=== PATIENT | female | born 1945 | race Caucasian/White ===

== ENCOUNTER 2023-05-04 09:02 | Outpatient (AMB) | payer OTHER, SELFPAY ==
--- NOTE | 2023-05-04 09:03 | MHC.OFFWIV ---
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 Patient complaining of right ear fullness. Patient reports a history of recurrent cerumen impaction and she was seeing any ENT every 2 months for removal while she lived in [place]. Patient just recently moved back to the area and was not able to make an ENT appointment until the end of May. Patient states she has had right ear fullness for the past 2 months because she has not had cerumen removal. Patient reports having a small ear canals and her ENT had to use the supplies. She reports mild nasal congestion and eye irritation attributed to seasonal allergies. She otherwise feels well. [facility] Social History Patient Tobacco Use Status: Former Tobacco user Review of Systems Const All systems reviewed & are unremarkable except as noted in HPI and below Reports no additional complaints Eyes Reports no additional complaints ENT Reports no additional complaints Card Reports no additional complaints Resp Reports no additional complaints GI Reports no additional complaints Reports no additional complaints Musc Reports no additional complaints Skin/Breast Reports system reviewed and no additional complaints, except as documented Neuro Reports no additional complaints Psych Reports no additional complaints Endo Reports no additional complaints Blaze/Lymph Reports no additional complaints Aller/Immun Reports no additional complaints Physical Exam Vital Signs: Last Vital Signs Temp 97.6 F 05/04/23 09:05 Pulse 74 05/04/23 09:05 BP 120/70 05/04/23 09:05 Pulse Ox 97 05/04/23 09:05 BMI result Body Mass Index 16.6 Const General: cooperative, healthy appearing, no acute distress and well developed Orientation/consciousness: patient oriented x3 HEENT Other: Significant swelling of the right external auditory canal. Unable to visualize tympanic membrane. Head: Yes normal to inspection Ears: hearing grossly normal bilaterally General nose exam: Normal external nose present Face and sinus: Yes normal facial exam Mouth: Normal oral and palatal mucosa present Eyes General: appearance normal, both eyes and all related structures Pupils: Equal, round and reactive pupils present EOM: EOMs intact bilaterally Resp Effort & Inspection: normal respiratory effort and no respiratory distress Auscultation: clear to auscultation bilaterally Cardio Rate: regular rate Rhythm: regular rhythm Heart sounds: no gallops, no murmurs and no rubs Peripheral pulses: Peripheral pulses 2+ throughout GI Inspection: No distended Palpation (GI): Soft to palpation and nontender Auscultation: normal bowel sounds Skin General skin exam: no rashes or lesions noted Neuro General: patient oriented x3 Cranial nerves: Yes CN's II-XII intact bilaterally and Yes Equal, round and reactive pupils present Gait exam (Neuro): Normal gait present Motor exam (neuro): 5/5 motor strength present throughout Extrem General: Yes normal to inspection, Yes full ROM and Yes no clubbing, cyanosis or edema Psych Appearance: grossly normal Mental Status: mental status grossly normal Assessment & Plan Assessment & Plan (1) Sensation of fullness in right ear: Code(s): H93.8X1 - Other specified disorders of right ear Plan: This is a 77-year-old female with history of recurrent cerumen impaction presenting with right ear fullness. Unable to perform cerumen removal given significant swelling of the right external auditory canal. Patient was prescribed hydrocortisone ear drops to help with the swelling. She was advised to follow up here once the swelling improves to re-attempt cerumen removal. If her symptoms improve, patient can follow up with the ENT at the end of May as scheduled. Patient verbalizes her understanding and she is in agreement with the plan. Medications: New hydrocortisone-acetic acid 1-2 % 4 drps otic (ear) right TID 10 mL 0RF Coding Level of Care Code New Pt Level 3 (11325) Diagnoses Sensation of fullness in right ear H93.8X1
[2023-05-04 09:05] VITALS: BP 120/70; PULSE 74; TEMP 36.4; O2SAT 97; BMI 16.6
== END 2023-05-04 09:53 | disposition home or self-care (01) ==
PROVIDERS: Visit Provider Physician Assistant Medical
DX: H93.8X1 Other specified disorders of right ear (principal)
CPT/HCPCS: 99203

== ENCOUNTER 2023-05-17 08:46 | Outpatient (AMB) | payer OTHER, SELFPAY ==
--- NOTE | 2023-05-17 08:54 | AM.OFFWIN_ITS ---
Intake Vital Signs 05/17/23 08:56 Height 5 ft Weight 83 lb 8 oz BMI 16.3 BP 122/78 Blood Pressure Location Rt brachial Position Sitting Pulse 70 Pulse Source Pulse Oximeter Pulse Oximetry (%) 100 Oxygen Delivery Method Room Air Intake Visit Reasons: EP Wax Removal Intake Note: Patient here for for wax build up. Patient Tobacco Use Status: Former Tobacco user Allergies No Known Allergies Allergy (Verified 05/04/23 09:06) Do you need a note to return to daycare/school/sports/work: No HPI HPI Comments History of Present Illness Details 77-year-old female history of chronic cerumen impaction presents for ear flushing. Patient states she came couple weeks ago with right ear pain found have cerumen impaction because of swelling of the ear. There are unable to flush given the level swelling and prescribed hydrocortisone drops. She returns today with improvement in her swelling and requesting flushing. [facility] Social History Patient Tobacco Use Status: Former Tobacco user Review of Systems Const All systems reviewed & are unremarkable except as noted in HPI and below ENT Details: ear fullness Physical Exam Vital Signs: Last Vital Signs Pulse 70 05/17/23 08:56 BP 122/78 05/17/23 08:56 Pulse Ox 100 05/17/23 08:56 Oxygen Delivery Method Room Air 05/17/23 08:56 BMI result Body Mass Index 16.3 Const General: healthy appearing, comfortable and no acute distress HEENT Other: cerumen buildup in the right ear unable to visualize canal. Mild cerumen in the left ear canal intact Assessment & Plan Assessment & Plan (1) Cerumen impaction: Code(s): H61.20 - Impacted cerumen, unspecified ear Plan VSS. Exam notable for cerumen buildup in the right ear will flush.. patient tolerated ear flushing. Repeat examination shows clear canal with tympanic membrane intact no evidence of infection. Discharge instructions, follow up and treatment are discussed with patient in my usual fashion. Alternatives in treatment are also discussed. The patient will return for worsening symptoms or as needed. Advised that any labs/imaging ordered will be followed up on and contact made if further treatment needed. Counseled that patient's condition may require further evaluation and/or treatment. Symptoms of concern for worsening disorder discussed in detail in my customary manner. Patient does verbalize understanding of the plan, there are no apparent barriers to communication. The patient is given the opportunity to ask questions and have them answered to his/her satisfaction Coding Level of Care Code Est Pt Level 3 (63859) Diagnoses Cerumen impaction H61.20
[2023-05-17 08:56] VITALS: BP 122/78; PULSE 70; O2SAT 100; BMI 16.3
== END 2023-05-17 09:52 | disposition home or self-care (01) ==
PROVIDERS: Visit Provider Physician Assistant
DX: H61.21 Impacted cerumen, right ear (principal)
CPT/HCPCS: 69209; 99213

== ENCOUNTER 2023-06-14 08:37 | Outpatient (AMB) | payer OTHER, SELFPAY ==
--- NOTE | 2023-06-14 08:48 | AM.OFFWIN_ITS ---
Intake Vital Signs 06/14/23 08:50 Height 5 ft Weight 84 lb BMI 16.4 BP 120/80 Blood Pressure Location Lt brachial Position Sitting Pulse 66 Pulse Source Pulse Oximeter Pulse Oximetry (%) 99 Oxygen Delivery Method Room Air Intake Visit Reasons: EST/left leg infection Intake Note: Patient here for a sore on left leg. she stated she hit herself on the end of a coffee table and thats how it started but has not gone away and its been present for 2 weeks now. she states it continues to bleed. Patient Tobacco Use Status: Former Tobacco user Allergies No Known Allergies Allergy (Verified 06/14/23 08:54) Do you need a note to return to daycare/school/sports/work: No HPI HPI Comments History of Present Illness Details 77-year-old female presents for stone re moval leg infection. She cut her leg on a table couple weeks ago and some redness around there she has been using [id number] treatments and was advised to come in and have it looked at. Denies fevers or chills. PFSH Social History Patient Tobacco Use Status: Former Tobacco user Review of Systems Const All systems reviewed & are unremarkable except as noted in HPI and below Skin/Breast Reports wounds Physical Exam Vital Signs: Last Vital Signs Pulse 66 06/14/23 08:50 BP 120/80 06/14/23 08:50 Pulse Ox 99 06/14/23 08:50 Oxygen Delivery Method Room Air 06/14/23 08:50 BMI result Body Mass Index 16.4 Const General: cooperative, no acute distress and alert Skin Other: Small circular wound on the left mid cruz region. Some surrounding erythema and warmth Assessment & Plan Assessment & Plan (1) Cellulitis: Code(s): L03.90 - Cellulitis, unspecified Qualifiers: Site of cellulitis: extremity Site of cellulitis of extremity: lower extremity Laterality: left Qualified Code(s): L03.116 - Cellulitis of left lower limb Plan: Exam notable for Small circular wound on the left mid cruz region. Some surrounding erythema and warmth, exam findings consistent concerning for cellulitis. Will prescribe Keflex. Discharge instructions, follow up and treatment are discussed with patient in my usual fashion. Alternatives in treatment are also discussed. The patient will return for worsening symptoms or as needed. Advised that any labs/imaging ordered will be followed up on and contact made if further treatment needed. Counseled that patient's condition may require further evaluation and/or treatment. Symptoms of concern for worsening disorder discussed in detail in my customary manner. Patient does verbalize understanding of the plan, there are no apparent barriers to communication. The patient is given the opportunity to ask questions and have them answered to his/her satisfaction Medications: New cephalexin 500 mg PO QID 28 caps 0RF 7 days Patient Instructions: Your seen evaluated in the urgent care for a skin infection. Urine prescribed Keflex please take as directed 4 times a day for the next 7 days. This should clear up the redness or neural wound. Please days antibiotic ointment which can be purchased [id number]. Some examples of bacitracin. If your wound does not close with the next 2 weeks you may follow-up with primary as you may need to be referred to wound care. Patient has a new worsening since such as worsening redness or swelling pain or fever chills present to the emergency department. Coding Level of Care Code Est Pt Level 3 (65531) Diagnoses Cellulitis of left lower extremity L03.116 Site of cellulitis: extremity Site of cellulitis of extremity: lower extremity Laterality: left
[2023-06-14 08:50] VITALS: BP 120/80; PULSE 66; O2SAT 99; BMI 16.4
== END 2023-06-14 09:25 | disposition home or self-care (01) ==
LOC: HO.HMGWI 08:37
DX: L03.116 Cellulitis of left lower limb (principal)
CPT/HCPCS: 99213

== ENCOUNTER 2023-08-27 09:47 | Outpatient (AMB) | payer OTHER, SELFPAY ==
--- NOTE | 2023-08-27 09:49 | MHC.PC.OV ---
Vital Signs 08/27/23 10:05 Height 4 ft 11 in Weight 79 lb 6 oz BMI 16.0 BP 120/70 Blood Pressure Location Lt brachial Position Sitting Pulse 73 Pulse Source Pulse Oximeter Pulse Oximetry (%) 100 Oxygen Delivery Method Room Air Intake Visit Reasons: Establish Care Intake Note: Patient is a new patient here to establish care for Breast Cancer (2018), Heart murmur. Transferring care from Dr Rehman ([place]), Dr Gita Powers ([facility]). Medical records have been requested and have received. 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 Accompanied by: Self / Same As Patient Allergies No Known Allergies Allergy (Verified 08/27/23 10:24) Medication List - Last Reconciled 08/27/23 by Vini Dejesus PA-C alendronate 70 mg PO QWEEK ascorbate calcium (vitamin C) 500 mg PO DAILY cholecalciferol (vitamin D3) 25 mcg PO DAILY cyanocobalamin (vitamin B-12) 1,000 mcg PO DAILY hydrocortisone-acetic acid 1-2 % 4 drps otic (ear) right TID loratadine 10 mg PO DAILY Tobacco use date assessed: 08/27/23 Fall risk assessment: No Falls in past year Last assessed Fall Risk: 08/27/23 Dental Screening Dental Screen Date: 08/27/23 Did you have a dental visit in the last 12 months?: No Did you have a dental problem in the last 6 months where you did not have access to dental care?: No Was dental information given to patient?: No HPI Establish Care HPI Details Patient is a 77-year-old female here today for an establish care visit. Patient's previous PCP was in [place]. Patient has a past medical history significant for breast cancer diagnosed in 2018- Lumpectomy, s/p radiation, will BMI, osteoporosis. She did follow-up with a [facility] PCP own recently had gotten labs. She cannot recall any of the findings though was started on B12 supplementation. Bilateral ear congestion: Bilateral ear congestion has been a chronic issue for her. She does follow in ENT in [place] and gets her ears cleaned. She was told she had eczema on her right ear was told to use topical steroid cream on the external canal which has been helpful. .. h/o beast cancer - Gets mammo yearly , like to transition to [place] to get her mammograms .. Osteoporosis: She continues on Fosamax once weekly. She cannot recall any recent bone density screening. Will order bone density to evaluate her bone mineral density. Vaccines: Up-to-date with COVID vaccine, flu vaccine and pneumonia vaccine. [facility] Medical History (Updated 08/28/23 @ 07:55 by Vini Dejesus PA-C) Cellulitis Surgical History History of nasal surgery History of lumpectomy Social History Housing: Apartment Alcohol intake: current Alcohol intake frequency: holidays/special occasions only Patient Tobacco Use Status: Former Tobacco user (20 years ) e-Cigarette/Vaping Use: Never Used Second Hand Smoke Exposure: Yes service: No Current occupational status: retired Cognitive needs: No Hearing needs: No Vision needs: Yes (glasses) Questionnaire PHQ-9 Over the last 2 weeks, how often have you been bothered by any of the following problems? 1. Little interest or pleasure in doing things: not at all 2. Feeling down, depressed, or hopeless: not at all 3. Trouble falling or staying asleep, or sleeping too much: not at all 4. Feeling tired or having little energy: not at all 5. Poor appetite or overeating: not at all 6. Feeling bad about yourself - or that you are a failure or have let yourself or your family down: not at all 7. Trouble concentrating on things, such as reading the newspaper or watching television: not at all 8. Moving or speaking so slowly that other people could have noticed. Or the opposite - being so fidgety or restless that you have been moving around a lot more than usual: not at all 9. Thoughts that you would be better off or of hurting yourself in some way: not at all Total score: 0 Depression Screening Interpretation: Negative Depression Screening Done: Yes 00135 - PHQ-9 Billing: Yes Source: Developed by Drs. Constantin Badillo, Ana Paula Young, Alireza Cadena and colleagues, with an educational pretty from [employer]. Thrive Questionnaire Date Thrive assessed: 08/27/23 I am a: Patient What is your living situation today?: I have a steady place to live Within the past 12 months, did the food you bought not last and you didn't have the money to get more?: Never true Within the past 12 months, did you worry whether your food would run out before you got money to buy more?: Never true Do you have trouble paying for medicines?: No Do you have trouble getting transportation to medical appointments?: No Do you have trouble paying your heating and electricity bill?: No Do you have trouble taking care of your child, family member or friend?: No Do you have trouble with day-to-day activities such as bathing, preparing meals, shopping, managing finances, etc.?: No Are you currently unemployed and looking for a job?: No Are you interested in more education?: No Currently or been in a relationship where the following occur: no concerns reported AUDIT C Alcohol Use Questionnaire (AUDIT-C) 1. How often do you have a drink containing alcohol?: Monthly or less Total Score: 1 SHANIKA-7 AMB Questionnaire SHANIKA-7 Date SHANIKA - 7 assessed: 08/27/23 Feeling nervous, anxious, or on edge: 0 = Not at all Not being able to stop or control worryin = Not at all Worrying too much about different things: 0 = Not at all Trouble relaxin = Not at all Being so restless that it is hard to sit still: 0 = Not at all Becoming easily annoyed or irritable: 0 = Not at all Feeling afraid as if something awful might happen: 0 = Not at all Total SHANIKA-7 score (0-4 normal; 5-9 mild; 10-14 moderate; 15-21 severe): 0 Source: Developed by Drs. Constantin Badillo, Ana Paula Young, Alireza Cadena and colleagues, with an educational pretty from [employer]. SHANIKA-7 Assessment Billing SHANIKA-7 Assessment Tool: SHANIKA-7 Assessment 63475 Review of Systems Const Denies headache(s) Eyes Denies loss of vision ENT Denies vertigo, Denies dizziness, Denies headache(s) and Denies sore throat Card Denies chest pain, Denies leg edema and Denies lightheadedness Resp Denies cough, Denies hemoptysis and Denies wheezing GI Denies abdominal pain, Denies melena, Denies constipation, Denies diarrhea and Denies vomiting Denies urinary frequency, Denies dysuria and Denies urinary urgency Musc Denies arthralgias, Denies joint swelling, Denies numbness and Denies tingling Neuro Denies Abnormal speech present, Denies behavioral changes, Denies vertigo, Denies dizziness, Denies headache(s), Denies loss of vision, Denies memory loss, Denies numbness and Denies tingling Psych Denies anxiety, Denies behavioral changes, Denies depression, Denies memory loss and Denies panic attacks Blaze/Lymph Denies easy bleeding and Denies easy bruising Aller/Immun Denies wheezing Physical exam (Primary Care) Vital Signs: Last Vital Signs Pulse 73 08/27/23 10:05 BP 120/70 08/27/23 10:05 Pulse Ox 100 08/27/23 10:05 Oxygen Delivery Method Room Air 08/27/23 10:05 BMI result Body Mass Index 16.0 Tobacco/Smoking Status: Tobacco use Status Tobacco use date assessed 08/27/23 08/27/23 10:07 Patient Tobacco Use Status Former Tobacco user (20 08/27/23 10:21 years ) e-Cigarette/Vaping Use Never Used 08/27/23 10:19 PHQ-9: PHQ-9 Score PHQ-9: Total score 0 08/27/23 10:36 Depression Screening Interpretation: Negative Thrive Assessment: Date of Thrive Assessment Date Thrive assessed 08/27/23 08/27/23 10:07 Currently or been in a relationship where the following occur: no concerns reported Const General: healthy appearing, no acute distress, alert and awake Nutritional Appearance: well nourished Orientation/consciousness: oriented to person, oriented to place and oriented to time [facility] Ears: TM's normal bilaterally General nose exam: Normal nasal mucous membranes and turbinates present Eyes Conjunctivae: conjunctivae normal Sclerae: sclerae normal Pupils: Equal, round and reactive pupils present Neck Neck: Yes no lymphadenopathy and Yes no JVD Thyroid: Thyroid normal Carotids: no bruits Resp Effort & Inspection: normal respiratory effort and not tachypneic Auscultation: no crackles, no rales, no rhonchi and no wheezes Cardio Rate: regular rate Rhythm: regular rhythm Heart sounds: no murmurs and normal S1 and S2 GI Palpation (GI): Soft to palpation, nontender, no hepatomegaly and no splenomegaly Auscultation: normal bowel sounds Skin General skin exam: no rashes or lesions noted and dry skin Neuro General: oriented to person, oriented to place and oriented to time Cranial nerves: Yes Equal, round and reactive pupils present Speech: No Abnormal speech present Gait exam (Neuro): Normal gait present Motor exam (neuro): no tremor noted Extrem Right upper extremity: full ROM Left upper extremity: full ROM Right lower extremity: full ROM; no edema Left lower extremity: full ROM; no edema Psych Mental Status: mental status grossly normal Speech and movement: Normal speech and movement present Affect: normal affect Attitude: cooperative Thought process: Normal thought process present Assessment and Plan Assessment & Plan (1) Osteoporosis: Code(s): M81.0 - Age-related osteoporosis without current pathological fracture Qualifiers: Osteoporosis type: age-related Presence of current pathological fracture: without current pathological fracture Qualified Code(s): M81.0 - Age-related osteoporosis without current pathological fracture Plan: Will get a new bone density screening to evaluate the bone mineral density. Will continue once weekly Fosamax. (2) H/O malignant neoplasm of breast: Code(s): Z85.3 - Personal history of malignant neoplasm of breast Plan: Has had history of breast cancer and is status post radiation and mastectomy. Continues to get mammograms on annual basis. (3) Screening for diabetes mellitus (DM): Code(s): Z13.1 - Encounter for screening for diabetes mellitus (4) Congestion of right ear: Code(s): H93.8X1 - Other specified disorders of right ear Plan: As per HPI patient has chronic ear congestion. Has been started antihistamine therapy and hydrocortisone cream for her external canal is she has been told she had eczema on her ear. (5) B12 deficiency: Code(s): E53.8 - Deficiency of other specified B group vitamins Plan: Was started on B12 supplementation by her previous PCP. Will continue to follow B 12 Orders: Orders Comprehensive [place]. Panel Fast 08/27/23 Z13.1 - Encounter for screening for diabetes mellitus Vitamin B12 and Folate 08/27/23 E53.8 - Deficiency of other specified B group vitamins XR DEXA axial skeleton 08/27/23 M81.0 - Age-related osteoporosis without current pathological fracture, Z78.0 - Asymptomatic menopausal state Complete Blood Count no Diff 08/27/23 E53.8 - Deficiency of other specified B group vitamins Referrals Ear/Nose/Throat Referral H93.8X1 - Other specified disorders of right ear Medications: Changed From alendronate 70 mg PO QWEEK M81.0 - Age-related osteoporosis without current pathological fracture To alendronate 70 mg PO QWEEK 12 weeks 12 tabs 3RF M81.0 - Age-related osteoporosis without current pathological fracture From cyanocobalamin (vitamin B-12) 1,000 mcg PO DAILY M81.0 - Age-related osteoporosis without current pathological fracture To cyanocobalamin (vitamin B-12) 1,000 mcg PO DAILY 90 days 90 tabs 1RF M81.0 - Age-related osteoporosis without current pathological fracture Discontinued hydrocortisone-acetic acid 1-2 % Discontinued Reason: Doctor's Order 4 drps otic (ear) right TID 10 mL 0RF Coding Level of Care Code New Pt Level 4 (25948) Diagnoses Age-related osteoporosis without current pathological fracture M81.0 Osteoporosis type: age-related Presence of current pathological fracture: without current pathological fracture H/O malignant neoplasm of breast Z85.3 Screening for diabetes mellitus (DM) Z13.1 Congestion of right ear H93.8X1 B12 deficiency E53.8 Additional Codes SHANIKA-7 Assessment Billing - SHANIKA-7 Assessment Tool: SHANIKA-7 Assessment 44099 ([id number])
[2023-08-27 10:05] VITALS: BP 120/70; PULSE 73; O2SAT 100; BMI 16.0
== END 2023-08-27 10:49 | disposition home or self-care (01) ==
PROVIDERS: PCP Physician Assistant; Visit Provider Physician Assistant
DX: M81.0 Age-related osteoporosis without current pathological fracture (principal); Z85.3 Personal history of malignant neoplasm of breast; Z13.1 Encounter for screening for diabetes mellitus; H93.8X1 Other specified disorders of right ear; E53.8 Deficiency of other specified B group vitamins
CPT/HCPCS: 99204; 99214

== ENCOUNTER 2023-09-18 08:40 | Outpatient (AMB) | payer OTHER, SELFPAY ==
[2023-09-18 10:06] VITALS: BP 116/70; PULSE 82; TEMP 36.8; O2SAT 98; BMI 16.6
--- NOTE | 2023-09-18 10:06 | AM.OFFWIN_ITS ---
Intake Vital Signs 09/18/23 10:06 Height 4 ft 11 in Weight 82 lb BMI 16.6 BP 116/70 Blood Pressure Location Lt brachial Position Sitting Pulse 82 Pulse Source Pulse Oximeter Temp 98.2 F Temp Source Temporal Artery Scan Pulse Oximetry (%) 98 Oxygen Delivery Method Room Air Intake Visit Reasons: EP, redness/swelling in both cheeks(lobby) Intake Note: pt is here for c.o redness, swelling in both cheeks Patient Tobacco Use Status: Former Tobacco user (20 years ) Allergies No Known Allergies Allergy (Verified 09/18/23 10:15) Medication List - Last Reconciled 09/18/23 by Benedict Campbell MD alendronate 70 mg PO QWEEK 12 weeks ascorbate calcium (vitamin C) 500 mg PO DAILY cholecalciferol (vitamin D3) 25 mcg PO DAILY cyanocobalamin (vitamin B-12) 1,000 mcg PO DAILY 90 days loratadine 10 mg PO DAILY Do you need a note to return to daycare/school/sports/work: No HPI EP, redness/swelling in both cheeks(lobby) HPI Details 77-year-old female presents to the [facility] for a sick visit. Patient has developed a rash over the past few days. Rashes on both sides to the cheeks causing more discomfort. No fevers or chills. [facility] Medical History (Updated 08/28/23 @ 07:55 by Vini Dejesus PA-C) Cellulitis Surgical History History of nasal surgery History of lumpectomy Social History Housing: Apartment Alcohol intake: current Alcohol intake frequency: holidays/special occasions only Patient Tobacco Use Status: Former Tobacco user (20 years ) e-Cigarette/Vaping Use: Never Used Second Hand Smoke Exposure: Yes service: No Current occupational status: retired Cognitive needs: No Hearing needs: No Vision needs: Yes (glasses) Physical Exam Vital Signs: Last Vital Signs Temp 98.2 F 09/18/23 10:06 Pulse 82 09/18/23 10:06 BP 116/70 09/18/23 10:06 Pulse Ox 98 09/18/23 10:06 Oxygen Delivery Method Room Air 09/18/23 10:06 BMI result Body Mass Index 16.6 Skin Other: Erythematous rash on both cheeks across the bridge of the nose. The rash is extending beyond the nasolabial folds on each side. Assessment & Plan Assessment & Plan (1) Rash: Code(s): R21 - Rash and other nonspecific skin eruption Plan: Most likely irritant dermatitis. Blood work to check for a inflammatory markers ordered. Tapering dose of prednisone given. Orders: Orders Complete Blood Count no Diff Today R21 - Rash and other nonspecific skin eruption Basic Metabolic Panel Today R21 - Rash and other nonspecific skin eruption Liver Panel Today R21 - Rash and other nonspecific skin eruption Erythrocyte Sedimentation Rate Today R21 - Rash and other nonspecific skin eruption C Reactive Protein Today R21 - Rash and other nonspecific skin eruption Thyroid Stimulating Hormone Today R21 - Rash and other nonspecific skin eruption Medications: New prednisone 6 pills by mouth day 1, 6 pills by mouth day 2, 5 pills by mouth day 3, 4 pills by mouth day 4, 3 pills by mouth day 5, 2 pills by mouth day 6, 1 pill by mouth day 7 and 1 pill by mouth day 8. 10 mg PO DAILY 28 tabs 0RF Coding Level of Care Code Est Pt Level 4 (97213) Diagnoses Rash R21
== END 2023-09-18 10:47 | disposition home or self-care (01) ==
PROVIDERS: PCP Physician Assistant; Visit Provider Internal Medicine
DX: R21 Rash and other nonspecific skin eruption (principal)
CPT/HCPCS: 99214

== ENCOUNTER 2023-09-18 10:32 | Outpatient (REF) | payer OTHER, SELFPAY ==
[2023-09-18 13:22] LABS: Hematocrit 40.1 % (37.0-47.0); Mean Corpuscular HGB Conc 34.9 g/dl (31.0-35.0); Mean Corpuscular Hemoglobin 31.3 pg (27.0-33.0); Mean Corpuscular Volume 89.7 fL (80.0-98.0); Mean Platelet Volume 10.8 fL (9.4-12.3); Platelet Count 149 X10*3/uL (160-400); Red Blood Count 4.47 X10*6/uL (4.20-5.50); Red Cell Distribution Width 13.3 % (11.0-16.0); White Blood Count 6.7 X10*3/uL (4.8-10.8)
[2023-09-18 13:44] LABS: Alanine Aminotransferase 15 U/L (0-31); Albumin Level 4.2 g/dL (3.5-5.0); Alkaline Phosphatase 68 U/L (39-117); Anion Gap 15 (12-20); Aspartate Amino Transferase 24 U/L (5-31); Bilirubin Direct 0.5 mg/dL (0.0-0.5); Bilirubin Total 1.5 mg/dL (0.0-1.0); Blood Urea Nitrogen 13 mg/dL (9-16); C Reactive Protein 1.61 mg/dL (< or = 0.50); Calcium 9.4 mg/dL (8.4-10.2); Carbon Dioxide 26 mmol/L (22-29); Chloride 101 mmol/L (96-108); Estimated Glomerular Filt Rate > 60; Glucose Random 95 mg/dL (60-115); Potassium 3.6 mmol/L (3.3-5.1); Sodium 138 mmol/L (135-145); Total Protein 7.5 g/dL (6.5-8.0)
[2023-09-18 13:53] LABS: Thyroid Stimulating Hormone 1.21 uIU/mL (0.32-4.0)
[2023-09-18 13:59] LABS: Erythrocyte Sedimentation Rate 13 MM/HR (0-20)
== END 2023-09-18 10:33 | disposition home or self-care (01) ==
LOC: HO.HMGCLDS 10:32
PROVIDERS: PCP Physician Assistant; Visit Provider Internal Medicine
DX: R21 Rash and other nonspecific skin eruption (principal)
CPT/HCPCS: 36415; 80048; 80076; 84443; 85027; 85652; 86140

== ENCOUNTER 2023-09-25 14:20 | Outpatient (AMB) | payer OTHER, SELFPAY ==
--- NOTE | 2023-09-25 14:23 | MHC.PC.OV ---
Vital Signs 09/25/23 14:30 Height 4 ft 11 in Weight 82 lb BMI 16.6 BP 140/82 H Blood Pressure Location Lt brachial Position Sitting Respiration 16 Pulse 86 Pulse Source Pulse Oximeter Pulse Oximetry (%) 97 Oxygen Delivery Method Room Air Intake Visit Reasons: facial swelling Intake Note: Patient is here to follow up from Walk in clinic for facial swelling. 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 Accompanied by: Self / Same As Patient Allergies No Known Allergies Allergy (Verified 09/25/23 14:56) Medication List - Last Reconciled 09/25/23 by Vini Dejesus PA-C alendronate 70 mg PO QWEEK 12 weeks ascorbate calcium (vitamin C) 500 mg PO DAILY cholecalciferol (vitamin D3) 25 mcg PO DAILY cyanocobalamin (vitamin B-12) 1,000 mcg PO DAILY 90 days loratadine 10 mg PO DAILY prednisone 10 mg PO DAILY Tobacco use date assessed: 09/25/23 Fall risk assessment: No Falls in past year Last assessed Fall Risk: 09/25/23 Dental Screening Dental Screen Date: 09/25/23 Did you have a dental visit in the last 12 months?: Yes Did you have a dental problem in the last 6 months where you did not have access to dental care?: No Was dental information given to patient?: Patient has dentist HPI facial swelling HPI Details Patient is 77-year-old female here today for follow-up visit. Recently seen at the walk-in clinic for facial rash. Patient was placed on a prednisone taper. She reports she had her house sprays for bugs prior to the rash. Currently doing much better and redness and swelling in the face has nearly completely resolved. She does report she needs a 2nd application of the bug spray in her home and will try to leave the home for several hours after spraying. [facility] Medical History Cellulitis Surgical History History of nasal surgery History of lumpectomy Social History Housing: Apartment Alcohol intake: current Alcohol intake frequency: holidays/special occasions only Patient Tobacco Use Status: Former Tobacco user (20 years ) e-Cigarette/Vaping Use: Never Used Second Hand Smoke Exposure: Yes service: No Current occupational status: retired Cognitive needs: No Hearing needs: No Vision needs: Yes (glasses) Questionnaire PHQ-9 Over the last 2 weeks, how often have you been bothered by any of the following problems? 1. Little interest or pleasure in doing things: not at all 2. Feeling down, depressed, or hopeless: not at all 3. Trouble falling or staying asleep, or sleeping too much: not at all 4. Feeling tired or having little energy: not at all 5. Poor appetite or overeating: not at all 6. Feeling bad about yourself - or that you are a failure or have let yourself or your family down: not at all 7. Trouble concentrating on things, such as reading the newspaper or watching television: not at all 8. Moving or speaking so slowly that other people could have noticed. Or the opposite - being so fidgety or restless that you have been moving around a lot more than usual: not at all 9. Thoughts that you would be better off or of hurting yourself in some way: not at all Total score: 0 Depression Screening Interpretation: Negative Depression Screening Done: Yes 33528 - PHQ-9 Billing: Yes Source: Developed by Drs. Constantin Badillo, Ana Paula Young, Alireza Cadena and colleagues, with an educational pretty from [email or web address]. Thrive Questionnaire Date Thrive assessed: 09/25/23 I am a: Patient What is your living situation today?: I have a steady place to live Within the past 12 months, did the food you bought not last and you didn't have the money to get more?: Never true Within the past 12 months, did you worry whether your food would run out before you got money to buy more?: Never true Do you have trouble paying for medicines?: No Do you have trouble getting transportation to medical appointments?: No Do you have trouble paying your heating and electricity bill?: No Do you have trouble taking care of your child, family member or friend?: No Do you have trouble with day-to-day activities such as bathing, preparing meals, shopping, managing finances, etc.?: No Are you currently unemployed and looking for a job?: No Are you interested in more education?: No Please select the resources that you would like help with: None Currently or been in a relationship where the following occur: no concerns reported AUDIT C Alcohol Use Questionnaire (AUDIT-C) 1. How often do you have a drink containing alcohol?: Never 3. How often do you have six or more drinks on one occasion?: Never Total Score: 0 SHANIKA-7 AMB Questionnaire SHANIKA-7 Date SHANIKA - 7 assessed: 09/25/23 Feeling nervous, anxious, or on edge: 0 = Not at all Worrying too much about different things: 0 = Not at all Trouble relaxin = Not at all Being so restless that it is hard to sit still: 0 = Not at all Becoming easily annoyed or irritable: 0 = Not at all Feeling afraid as if something awful might happen: 0 = Not at all Source: Developed by Drs. Constantin Badillo, Ana Paula Young, Alireza Cadena and colleagues, with an educational pretty from [email or web address]. SHANIKA-7 Assessment Billing SHANIKA-7 Assessment Tool: SHANIKA-7 Assessment 56496 Review of Systems Const Denies headache(s) Eyes Denies loss of vision ENT Denies vertigo, Denies dizziness, Denies headache(s) and Denies sore throat Card Denies chest pain, Denies leg edema and Denies lightheadedness Resp Denies cough, Denies hemoptysis and Denies wheezing GI Denies abdominal pain, Denies melena, Denies constipation, Denies diarrhea and Denies vomiting Denies urinary frequency, Denies dysuria and Denies urinary urgency Musc Denies arthralgias, Denies joint swelling, Denies numbness and Denies tingling Neuro Denies Abnormal speech present, Denies behavioral changes, Denies vertigo, Denies dizziness, Denies headache(s), Denies loss of vision, Denies memory loss, Denies numbness and Denies tingling Psych Denies anxiety, Denies behavioral changes, Denies depression, Denies memory loss and Denies panic attacks Blaze/Lymph Denies easy bleeding and Denies easy bruising Aller/Immun Denies wheezing Physical exam (Primary Care) Vital Signs: Last Vital Signs Pulse 86 09/25/23 14:30 Resp 16 09/25/23 14:30 BP 140/82 H 09/25/23 14:30 Pulse Ox 97 09/25/23 14:30 Oxygen Delivery Method Room Air 09/25/23 14:30 BMI result Body Mass Index 16.6 Tobacco/Smoking Status: Tobacco use Status Tobacco use date assessed 09/25/23 09/25/23 14:36 Patient Tobacco Use Status Former Tobacco user (20 09/25/23 14:25 years ) e-Cigarette/Vaping Use Never Used 09/25/23 14:25 PHQ-9: PHQ-9 Score PHQ-9: Total score 0 09/25/23 14:58 Depression Screening Interpretation: Negative Thrive Assessment: Date of Thrive Assessment Date Thrive assessed 09/25/23 09/25/23 14:35 Currently or been in a relationship where the following occur: no concerns reported Const General: healthy appearing, no acute distress, alert and awake Nutritional Appearance: well nourished Orientation/consciousness: oriented to person, oriented to place and oriented to time HENMT Ears: TM's normal bilaterally General nose exam: Normal nasal mucous membranes and turbinates present Face images: 1. VERY FAINT ERYTHEMA OVER BILATERAL CHEEKS AND NASAL BRIDGE. Eyes Conjunctivae: conjunctivae normal Sclerae: sclerae normal Pupils: Equal, round and reactive pupils present Neck Neck: Yes no lymphadenopathy and Yes no JVD Thyroid: Thyroid normal Carotids: no bruits Resp Effort & Inspection: normal respiratory effort and not tachypneic Auscultation: no crackles, no rales, no rhonchi and no wheezes Cardio Rate: regular rate Rhythm: regular rhythm Heart sounds: no murmurs and normal S1 and S2 GI Palpation (GI): Soft to palpation, nontender, no hepatomegaly and no splenomegaly Auscultation: normal bowel sounds Skin General skin exam: no rashes or lesions noted and dry skin Neuro General: oriented to person, oriented to place and oriented to time Cranial nerves: Yes Equal, round and reactive pupils present Speech: No Abnormal speech present Gait exam (Neuro): Normal gait present Motor exam (neuro): no tremor noted Extrem Right upper extremity: full ROM Left upper extremity: full ROM Right lower extremity: full ROM; no edema Left lower extremity: full ROM; no edema Psych Mental Status: mental status grossly normal Speech and movement: Normal speech and movement present Affect: normal affect Attitude: cooperative Thought process: Normal thought process present Assessment and Plan Assessment & Plan (1) Facial rash: Code(s): R21 - Rash and other nonspecific skin eruption Plan: Had a facial rash bilaterally after getting her house exterminated with spray. Likely a secondary allergic reaction. Prednisone very helpful and rash is nearly resolved. She does report needing a 2nd spray application at her home. Advised to be out of the house for several hours after the spray. Will supply with another script for prednisone taper in case she does have another reaction. Medications: Refilled prednisone 6 pills by mouth day 1, 6 pills by mouth day 2, 5 pills by mouth day 3, 4 pills by mouth day 4, 3 pills by mouth day 5, 2 pills by mouth day 6, 1 pill by mouth day 7 and 1 pill by mouth day 8. 10 mg PO DAILY 28 tabs 0RF R21 - Rash and other nonspecific skin eruption Coding Level of Care Code Est Pt Level 3 (74210) Diagnoses Facial rash R21 Additional Codes SHANIKA-7 Assessment Billing - SHANIKA-7 Assessment Tool: SHANIKA-7 Assessment 13340 ([id number])
[2023-09-25 14:30] VITALS: BP 140/82; PULSE 86; RESP 16; O2SAT 97; BMI 16.6
== END 2023-09-25 15:14 | disposition home or self-care (01) ==
PROVIDERS: PCP Physician Assistant; Visit Provider Physician Assistant
DX: R21 Rash and other nonspecific skin eruption (principal)
CPT/HCPCS: 99213

== ENCOUNTER 2023-10-16 09:27 | Outpatient (REF) | payer OTHER, SELFPAY ==
--- NOTE | ~2023-10-16 | MM_ITS ---
EXAMINATION: BONE DENSITOMETRY CLINICAL INDICATION: Menopause. COMPARISON: This is the patient's baseline examination. TECHNIQUE: Using a AdexLink DXA System (software version: 13.1) manufactured by [employer], dual-energy x-ray absorptiometry was performed of the lumbar spine and left hip. The images are of good technical quality. Summary results are attached. FINDINGS: LEFT FEMUR, NECK: BMD 0.652 g/cm2, Z-score 0.0, T-score -2.8, osteoporosis. LEFT FEMUR, TOTAL: BMD 0.704 g/cm2, Z-score 0.2, T-score -2.4, osteopenia. AP SPINE L1-L4: BMD 0.840 g/cm2, Z-score -0.1, T-score -2.8, osteoporosis. IDENTIFIED RISK FACTORS: Height loss, osteoporosis, menopause. HISTORY OF FRACTURE: None listed. MEDICATIONS: Calcium, vitamin D. MM/XR DEXA axial skeleton IMPRESSION: 1. DIAGNOSIS: Osteoporosis based on the lowest T-score value of -2.8 in the femur neck and lumbar spine applying World Health Organization criteria. 2. 10-YEAR FRACTURE RISK PREDICTION, FRAX: According to the guidelines, FRAX calculation should only be performed on patients in the osteopenia bone density category. Therefore, FRAX was not performed on this patient. 3. Treatment Recommendations: NOF guidelines recommend consideration for treatment in postmenopausal women and men age 50 and older presenting with the following: -A hip or vertebral (clinical or morphometric) fracture. -T-score less than or equal to -2.5 at the femoral neck or spine after appropriate evaluation to exclude secondary causes. -Low bone mass at the hip or spine and a 10-year fracture probability by FRAX of greater than or equal to 3% for hip fracture or greater than or equal to 20% for major osteoporotic fracture based on the [place] adapted WHO algorithm. 4. Other Recommendations: All treatment decisions require clinical judgment and consideration of individual patient factors, including patient preferences, comorbidities, previous drug use, risk factors not captured in the FRAX model (e.g. frailty, falls, vitamin D deficiency, increased bone turnover, interval significant decline in bone density) and possible under or overestimation of fracture risk by FRAX. Additional medical evaluation for secondary cause of low bone mineral density may be appropriate. FUTURE SCAN RECOMMENDATION: People with diagnosed cases of osteoporosis or at high risk for fracture should have regular bone mineral density tests. For patients eligible for Medicare, routine testing is allowed once every 2 years. The testing frequency can be increased to one year for patients who have rapidly progressing disease, those who are receiving or discontinuing medical therapy to restore bone mass, or have additional risk factors.
== END 2023-10-16 09:28 | disposition home or self-care (01) ==
LOC: HO.MAMMO 09:27
PROVIDERS: PCP Physician Assistant; Visit Provider Physician Assistant
DX: Z13.820 Encounter for screening for osteoporosis (principal); Z78.0 Asymptomatic menopausal state; M81.0 Age-related osteoporosis without current pathological fracture
CPT/HCPCS: 77080

== ENCOUNTER 2023-11-23 08:08 | Outpatient (AMB) | payer OTHER, SELFPAY ==
[2023-11-23 08:20] VITALS: BP 140/80; PULSE 84; TEMP 36.4; O2SAT 98; BMI 16.0
--- NOTE | 2023-11-23 08:20 | AM.OFFWIN_ITS ---
Intake Vital Signs 11/23/23 08:20 Height 4 ft 11 in Weight 79 lb BMI 16.0 BP 140/80 H Blood Pressure Location Lt brachial Position Sitting Pulse 84 Pulse Source Pulse Oximeter Temp 97.6 F Temp Source Temporal Artery Scan Pulse Oximetry (%) 98 Oxygen Delivery Method Room Air Intake Visit Reasons: EST/jaw pain/cold sores (lobby masked) Intake Note: pt is here today for jaw pain cold sores started 3 weeks ago Patient Tobacco Use Status: Former Tobacco user (20 years ) Allergies No Known Allergies Allergy (Verified 11/23/23 08:21) Do you need a note to return to daycare/school/sports/work: No HPI HPI Comments History of Present Illness Details 78 y/o female patient who [facility] with c/o mouth sores. Pt had some dental work recently and her tongue and gums are red and swollen. [facility] Medical History Cellulitis Surgical History History of nasal surgery History of lumpectomy Social History Housing: Apartment Alcohol intake: current Alcohol intake frequency: holidays/special occasions only Patient Tobacco Use Status: Former Tobacco user (20 years ) e-Cigarette/Vaping Use: Never Used Second Hand Smoke Exposure: Yes service: No Current occupational status: retired Cognitive needs: No Hearing needs: No Vision needs: Yes (glasses) Physical Exam Vital Signs: Last Vital Signs Temp 97.6 F 11/23/23 08:20 Pulse 84 11/23/23 08:20 BP 140/80 H 11/23/23 08:20 Pulse Ox 98 11/23/23 08:20 Oxygen Delivery Method Room Air 11/23/23 08:20 BMI result Body Mass Index 16.0 Const General: comfortable and no acute distress Orientation/consciousness: patient oriented x3 HEENT Head: Yes normocephalic Mouth: malodorous breath and Abnormal oral and palatal mucosa present (Red irritated Gums and tongue, mild swelling - left side mouth ) erythematous and edematous Neuro General: patient oriented x3 and gait normal Psych Speech and movement: Normal speech and movement present Assessment & Plan Assessment & Plan (1) Mouth sores: Code(s): K13.79 - Other lesions of oral mucosa Plan: - Pt to f/u with her Dentist. Medications: New chlorhexidine gluconate 0.12% 15 mL buccal BID 1,200 mL 0RF K13.79 - Other lesions of oral mucosa Coding Level of Care Code Est Pt Level 3 (96288) Diagnoses Mouth sores K13.79 Time Spent (min) 15
== END 2023-11-23 09:34 | disposition home or self-care (01) ==
PROVIDERS: PCP Physician Assistant; Visit Provider Nurse Practitioner Family
DX: K13.79 Other lesions of oral mucosa (principal)
CPT/HCPCS: 99213

== ENCOUNTER 2024-03-04 10:11 | Outpatient (AMB) | payer OTHER, SELFPAY ==
--- NOTE | 2024-03-04 10:13 | A.OFFPC_ITS ---
Vital Signs 03/04/24 10:17 Height 4 ft 11 in Weight 78 lb 4 oz BMI 15.8 BP 118/66 Blood Pressure Location Lt brachial Position Sitting Pulse 88 Pulse Source Pulse Oximeter Pulse Oximetry (%) 98 Oxygen Delivery Method Room Air Intake Visit Reasons: f/u labs / osteoporosis. Tobacco Sample Puller Required: No Accompanied by: Self / Same As Patient Allergies No Known Allergies Allergy (Verified 03/04/24 10:20) Medication List - Last Reconciled 03/04/24 by Vini Dejesus PA-C alendronate 70 mg PO QWEEK 12 weeks ascorbate calcium (vitamin C) 500 mg PO DAILY chlorhexidine gluconate 0.12% 15 mL buccal BID cholecalciferol (vitamin D3) 25 mcg PO DAILY cyanocobalamin (vitamin B-12) 1,000 mcg PO DAILY 90 days loratadine 10 mg PO DAILY Tobacco use date assessed: 09/25/23 Fall risk assessment: No Falls in past year Last assessed Fall Risk: 03/04/24 Dental Screening Dental Screen Date: 09/25/23 HPI f/u labs / osteoporosis. HPI Details Patient is a 78-year-old female here today for a follow-up visit Patient has a past medical history significant for breast cancer diagnosed in 2018- Lumpectomy, s/p radiation, will BMI, osteoporosis. Concern---> she believes she is developed bilateral cataracts as she has been having worsening vision. Also having some memory issues in his considering raysa ing Prevagen. CHRONIC MEDICAL CONDITIONS--> .. h/o beast cancer - Gets mammo yearly , like to transition to [place] to get her mammograms .. Osteoporosis: Most recent bone density showing T-score of -2.8 in the lumbar spine and femoral neck. She continues on Fosamax once weekly. She cannot recall any recent bone density screening. Will order bone density to evaluate her bone mineral densit y. [facility] Medical History Cellulitis Surgical History History of nasal surgery History of lumpectomy Social History Housing: Apartment Alcohol intake: current Alcohol intake frequency: holidays/special occasions only Patient Tobacco Use Status: Former Tobacco user (20 years ) e-Cigarette/Vaping Use: Never Used Second Hand Smoke Exposure: Yes service: No Current occupational status: retired Cognitive needs: No Hearing needs: No Vision needs: Yes (glasses) Questionnaire Thrive Questionnaire Date Thrive assessed: 09/25/23 SHANIKA-7 AMB Questionnaire SHANIKA-7 Date SHANIKA - 7 assessed: 09/25/23 Source: Developed by Drs. Constantin Badillo, Ana Paula Young, Alireza Cadena and colleagues, with an educational pretty from [employer]. Review of Systems Const Denies headache(s) Eyes Denies loss of vision ENT Denies vertigo, Denies dizziness, Denies headache(s) and Denies sore throat Card Denies chest pain, Denies leg edema and Denies lightheadedness Resp Denies cough, Denies hemoptysis and Denies wheezing GI Denies abdominal pain, Denies melena, Denies constipation, Denies diarrhea and Denies vomiting Denies urinary frequency, Denies dysuria and Denies urinary urgency Musc Denies arthralgias, Denies joint swelling, Denies numbness and Denies tingling Neuro Denies Abnormal speech present, Denies behavioral changes, Denies vertigo, Denies dizziness, Denies headache(s), Denies loss of vision, Denies memory loss, Denies numbness and Denies tingling Psych Denies anxiety, Denies behavioral changes, Denies depression, Denies memory loss and Denies panic attacks Blaze/Lymph Denies easy bleeding and Denies easy bruising Aller/Immun Denies wheezing Physical exam (Primary Care) Vital Signs: Last Vital Signs Pulse 88 03/04/24 10:17 BP 118/66 03/04/24 10:17 Pulse Ox 98 03/04/24 10:17 Oxygen Delivery Method Room Air 03/04/24 10:17 BMI result Body Mass Index 15.8 Tobacco/Smoking Status: Tobacco use Status Tobacco use date assessed 09/25/23 03/04/24 10:14 Patient Tobacco Use Status Former Tobacco user (20 03/04/24 10:14 years ) e-Cigarette/Vaping Use Never Used 03/04/24 10:14 Thrive Assessment: Date of Thrive Assessment Date Thrive assessed 09/25/23 03/04/24 10:14 Const General: healthy appearing, no acute distress, alert and awake Nutritional Appearance: well nourished Orientation/consciousness: oriented to person, oriented to place and oriented to time HENMT Ears: TM's normal bilaterally General nose exam: Normal nasal mucous membranes and turbinates present Eyes Conjunctivae: conjunctivae normal Sclerae: sclerae normal Pupils: Equal, round and reactive pupils present Neck Neck: Yes no lymphadenopathy and Yes no JVD Thyroid: Thyroid normal Carotids: no bruits Resp Effort & Inspection: normal respiratory effort and not tachypneic Auscultation: no crackles, no rales, no rhonchi and no wheezes Cardio Rate: regular rate Rhythm: regular rhythm Heart sounds: no murmurs and normal S1 and S2 GI Palpation (GI): Soft to palpation, nontender, no hepatomegaly and no splenomegaly Auscultation: normal bowel sounds Skin General skin exam: no rashes or lesions noted and dry skin Neuro General: oriented to person, oriented to place and oriented to time Cranial nerves: Yes Equal, round and reactive pupils present Speech: No Abnormal speech present Gait exam (Neuro): Normal gait present Motor exam (neuro): no tremor noted Extrem Right upper extremity: full ROM Left upper extremity: full ROM Right lower extremity: full ROM; no edema Left lower extremity: full ROM; no edema Psych Mental Status: mental status grossly normal Speech and movement: Normal speech and movement present Affect: normal affect Attitude: cooperative Thought process: Normal thought process present Assessment and Plan Assessment & Plan (1) Osteoporosis: Code(s): M81.0 - Age-related osteoporosis without current pathological fracture Qualifiers: Osteoporosis type: age-related Presence of current pathological fracture: without current pathological fracture Qualified Code(s): M81.0 - Age- related osteoporosis without current pathological fracture Plan: Recent bone density showing osteoporosis with a T-score of-2.8. Will continue once weekly Fosamax. (2) H/O malignant neoplasm of breast: Code(s): Z85.3 - Personal history of malignant neoplasm of breast Plan: Has had history of breast cancer and is status post radiation and mastectomy. Continues to get mammograms on annual basis. (3) Screening for diabetes mellitus (DM): Code(s): Z13.1 - Encounter for screening for diabetes mellitus (4) Cataract: Code(s): H26.9 - Unspecified cataract Qualifiers: Cataract type: age-related Age-related cataract type: other Laterality: bilateral Qualified Code(s): H25.89 - Other age-related cataract Plan: Patient believes she has cataracts, would like to see an case management specialist for an eye exam. She does report having some worsening vision (5) Memory impairment: Code(s): R41.3 - Other amnesia Plan: She reports having some worsening memory issues, asking about using Prevagen. Not interested in starting any prescription medication at this time or doing any brain scan. Orders: Orders Vitamin B12 and Folate Today E53.8 - Deficiency of other specified B group vitamins Comprehensive [place]. Panel Fast Today Z13.1 - Encounter for screening for diabetes mellitus Medications: Refilled cyanocobalamin (vitamin B-12) 1,000 mcg PO DAILY 90 days 90 tabs 1RF M81.0 - Age-related osteoporosis without current pathological fracture Coding Level of Care Code Est Pt Level 3 (98363) Diagnoses Age-related osteoporosis without current pathological fracture M81.0 Osteoporosis type: age-related Presence of current pathological fracture: without current pathological fracture H/O malignant neoplasm of breast Z85.3 Screening for diabetes mellitus (DM) Z13.1 Other age-related cataract of both eyes H25.89 Cataract type: age-related Age-related cataract type: other Laterality: bilateral Memory impairment R41.3
[2024-03-04 10:17] VITALS: BP 118/66; PULSE 88; O2SAT 98; BMI 15.8
== END 2024-03-04 10:44 | disposition home or self-care (01) ==
PROVIDERS: PCP Physician Assistant; Visit Provider Physician Assistant
DX: M81.0 Age-related osteoporosis without current pathological fracture (principal); Z85.3 Personal history of malignant neoplasm of breast; Z13.1 Encounter for screening for diabetes mellitus; H25.89 Other age-related cataract; R41.3 Other amnesia
CPT/HCPCS: 99213

== ENCOUNTER 2024-08-28 08:10 | Outpatient (REF) | payer OTHER, SELFPAY ==
[2024-08-28 09:39] LABS: Alanine Aminotransferase 29 U/L (0-31); Albumin Level 4.2 g/dL (3.5-5.0); Alkaline Phosphatase 81 U/L (39-117); Anion Gap 11 (12-20); Aspartate Amino Transferase 31 U/L (5-31); Bilirubin Total 0.9 mg/dL (0.0-1.0); Blood Urea Nitrogen 18 mg/dL (9-16); Calcium 9.6 mg/dL (8.4-10.2); Carbon Dioxide 29 mmol/L (22-29); Chloride 109 mmol/L (96-108); Estimated Glomerular Filt Rate > 60; Glucose Fasting 89 mg/dL (60-99); Potassium 3.5 mmol/L (3.3-5.1); Sodium 145 mmol/L (135-145); Total Protein 7.3 g/dL (6.5-8.0)
[2024-08-28 10:07] LABS: Folate 7.1 ng/mL (> or = 4.0); Vitamin B12 1553 pg/mL (200-900)
== END 2024-08-28 08:11 | disposition home or self-care (01) ==
LOC: HO.LAB 08:10
PROVIDERS: PCP Physician Assistant; Visit Provider Physician Assistant
DX: E53.8 Deficiency of other specified B group vitamins (principal); Z13.1 Encounter for screening for diabetes mellitus
CPT/HCPCS: 36415; 80053; 82607; 82746

== ENCOUNTER 2024-09-04 08:57 | Outpatient (AMB) | payer OTHER, SELFPAY ==
--- OUTSIDE RECORDS SUMMARY | 2024-09-04 09:12 | XMS_ITS | Continuity of Care Document ---
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 Name Role Phone Solitario OD, Dylan Unavailable Unavailable Allergies, Adverse Reactions, Alerts Substance Reaction Status Criticality No Known Allergies Active No Inform ation Medications Medication Instructions Dosage Effective Dates (start - stop) Status Comments mometasone 0.1 % topical cream - Active Prolia 60 mg/mL subcutaneous syringe - Active fluocinonide 0.05 % topical cream - Active hydrocortisone 1 % topical cream apply by topical route 2 times every day a thin layer to the affected area(s) 0.00 - Active Calcium 500 500 mg calcium (1,250 mg) tablet - Active Vitamin D3 2,000 unit capsule - Active Zyrtec 10 mg tablet take 1 tablet by oral route every day 10 MG - Active Artificial Tears (dextran 70-hypromellose) eye drops instill 1 drop by ophthalmic route every day 1 drop - Active Elidel 1 % topical cream - No Longer Active Procedures Procedure Date Refraction Est Patient Level IV Refraction Est Pt Comprehensive Eye Exam 0 Dilated macular or fundus exam performed Est Pt Intermediate Eye Exam New Pt Intermediate Eye Exam Advance Directives Directive Yes / No Effective Date File Name No Information Encounters Encounter Description Practice Location Reason(s) For Visit Diagnoses Date Provider Providers Copied on Encounter Est Patient Level IV [facility], [address], [place], [id number] , [place] tel: [phone] TEA Pt [place] decreased vision (chief complaint) Vitreous degeneration, bilateralAge-rela sapphire nuclear cataract, bilateralPresbyop iaKeratoconjunct sicca, not specified as Sjogren's, left eye 1 Solitario Richardson. [address] [place] [address], [id number], [place]. tel: [phone] [facility], [address] [place] [address], [id number] , [place] tel: [phone] TEA Pt Francisco Wyatt itchy eyes (chief complaint) Combined forms of age-related cataract, bilateralPresbyop ia Nov- 0 Mary DEXTER Killian. [address] [place] [address], [facility], . tel:[phone] [facility], [address] [place] [address], [id number] , [place] tel: [phone] BAY Pt Francisco Acute follicular (chief complaint) Acute follicular conjunctivitis, bilateral 9 Mary Killian. [address] [place] [address], [facility], . tel:[phone] Referring Provider: Constantin Bautista, [address] [place] [address], [address]. tel:[phone] [facility], [address] [place] [address], [id number] , [place] tel: [phone] BAY Pt Francisco Redness (chief complaint) Acute follicular conjunctivitis, bilateral 0-201 9 Mary DEXTER Killian. [address] [place] [address], [facility], . tel:[phone] Family History Family Member Type Diagnosis Age At Onset Father Problem (finding) hypertension Immunizations Vaccine Date Status Comments Flu (split) (3 yrs or older) administered Source: Other Provider Flu (split) (3 yrs or older) administered Source: Other Provider Flu (split) (3 yrs or older) administered Source: Other Provider Payers Payer name Insurance type Covered libertarian ID Gino abraham(davie Mcdonnell [facility] HMO Cap (TEA Premier) CI [id number] Social History Type Description Quantity Date Captured Comments Alcohol Use Details Unknown Caffeine Use Details Unknown Tobacco Use Status Ex-cigarette smoker Smoking Status Former smoker Smoking Tobacco Use Details Cigarette: Age Started: 26, Age Stopped: 63, Years Used 35 Cigarette: No Details Available Sex Female Chief Complaint And Reason For Visit From encounter dated '04/25/2021 08:40'. decreased vision (chief complaint). Description: The 75 year old female presents for evaluation of decreased vision in the OU. The symptom is constant. In addition, the condition is associated with difficulty reading street signs and fine print. Pt states with correction [place] is tolerable, could be sharper. Pt states intermittent itching OU, due to allergies. Pt using AT gtts PRN OU. Reason For Referral Reason For Referral No Information Plan Of Treatment Date Type Action Status Goal Tobacco cessation counseling completed Patient Education Presbyopia: Care Instru ctions completed Patient Education Presbyopia: Care Instru ctions completed Patient Education [place]: Care Instructi ons completed Patient Education [place]: Care Instructi ons completed History Of Present Illness Encounter Date Complaint History Of Prese nt Illness decreased vision The 75 year old female presents for evaluation of decreased vision in the OU. The symptom is constant. In addition, the condition is associated with difficulty reading street signs and fine print. Pt states with correction [place] is tolerable, could be sharper. Pt states intermittent itching OU, due to allergies. Pt using AT gtts PRN OU. itchy eyes The 74 year old female presents for evaluation of itchy eyes in the OU. OD>OS. It started about 6 month(s) ago. The symptom is frequent. Patient reports intermittent itching, redness, constant dull headache across forehead. Pt reports she had a CT scan for headache and it only showed thickening of the left sinus. Denies pain, blurry vision, discharge, fever, coughing. Pt uses zyrtec PO and blink 1,1 which helps. Pt referred by Dr. De La Rosa for the dull headache. Pt also reports photopsia unsure of which eye, about 6 months ago, denies curtain/veil, new floaters. Patient reports vision has not changed since last visit. Denies eye pain today. Denies glare complaint today. Acute follicular The 73 year old female presents for evaluation of Acute follicular in the OU. PT sts used Maxitrol gtts as directed. PT sts OU feeling much better. Redness The 73 year old female presents for evaluation of Redness in the OD>OS. It started about 1 week(s) ago. The symptom is constant. The condition is described as burning, itching and crusty in the AM. Pt also state that OD>OS water and get blurry. Pt sttaes that she saw her PCP on about a week ago. Pt states the PCP but her on sulfacetamide (4,4) and it made OU worse. Functional Status Date Functional Assessmen t No Information Instructions Date Instruction Additional Infor duarte 1y CEE NS w BAT OU/Dr. Jerez Related to Age-related nuclear cataract, bilateral Impression/Plan Related to Kerat oconjunct sicca, not specified as Sjogren's, left eye Impression/Plan Related to Age-r elated nuclear cataract, bilateral Impression/Plan Related to Vitre ous degeneration, bilateral Impression/Plan Related to Presb yopia Impression/Plan Related to Age-r elated nuclear cataract, bilateral [address] Hernandez for Complete Exam Related to Combined forms of age-related cataract, bilateral Impression/Plan Related to Combi maryse forms of age-related cataract, bilateral Impression/Plan Related to Presb yopia 2-[address] Hernandez for CEE Related to Acute follicular conjunctivitis, bilateral Impression/Plan Related to Acute follicular conjunctivitis, bilateral 2-[address] Hernandez for FOL Related to Acute follicular conjunctivitis, bilateral Impression/Plan Related to Acute follicular conjunctivitis, bilateral Assessments Type Assessment Date assessment Vitreous degeneration, bilateral assessment Age-related nuclear cataract, bi lateral assessment Presbyopia impression Age-related nuclear cataract, bi lateral: H25.13 impression Vitreous degeneration, bilateral : H43.813 impression Presbyopia: H52.4 assessment Keratoconjunct sicca, not specif ied as Sjogren's, left eye impression Keratoconjunct sicca , not specified as Sjogren's, left eye: H16.222 Patient Care Teams Name Effective Dates (start - stop) Status Members No Information
[2024-09-04 09:35] VITALS: BP 142/72; PULSE 70; O2SAT 99; BMI 16.6
--- NOTE | 2024-09-04 09:35 | MHC.PC.OV ---
Vital Signs 09/04/24 09:35 Height 4 ft 11 in Weight 82 lb BMI 16.6 BP 142/72 H Blood Pressure Location Lt brachial Position Sitting Pulse 70 Pulse Source Pulse Oximeter Pulse Oximetry (%) 99 Oxygen Delivery Method Room Air Intake Visit Reasons: f/u osteoprosis Park Maintainer Required: No Accompanied by: Self / Same As Patient Allergies No Known Allergies Allergy (Verified 09/04/24 09:53) Medication List - Last Reconciled 09/04/24 by Vini Dejesus PA-C alendronate 70 mg PO QWEEK 12 weeks ascorbate calcium (vitamin C) 500 mg PO DAILY calcium carbonate-vitamin D3 500 mg-10 mcg (400 unit) (Oyster Shell Calcium-Vitamin D3) 1 tab PO BID 90 days chlorhexidine gluconate 0.12% 15 mL buccal BID cholecalciferol (vitamin D3) 25 mcg PO DAILY cyanocobalamin (vitamin B-12) 1,000 mcg PO DAILY 90 days hydrocortisone 2.5% 1 appl topical BID loratadine 10 mg PO DAILY Tobacco use date assessed: 09/25/23 Fall risk assessment: No Falls in past year Last assessed Fall Risk: 09/04/24 Dental Screening Dental Screen Date: 09/25/23 HPI f/u osteoprosis HPI Details Patient is a 78-year-old female here today for a follow-up visit Patient has a past medical history significant for breast cancer diagnosed in 2018- Lumpectomy, s/p radiation, low BMI, osteoporosis. Concern---> most recent labs showing elevated B12 levels. Advised on discontinuing B12 supplementation and we will continue following B12 blood levels. CHRONIC MEDICAL CONDITIONS--> .. h/o beast cancer - Gets mammo yearly , like to transition to [place] to get her mammograms .. Osteoporosis: Most recent bone density showing T-score of -2.8 in the lumbar spine and femoral neck. She continues on Fosamax once weekly. She cannot recall any recent bone density screening. Will order bone density to evaluate her bone mineral density. Laboratory Tests 08/28/24 08:27 Creatinine 0.68 Vitamin B12 1553 H Folate 7.1 [facility] Medical History Cellulitis Surgical History History of nasal surgery History of lumpectomy Social History Housing: Apartment Alcohol intake: current Alcohol intake frequency: holidays/special occasions only Patient Tobacco Use Status: Former Tobacco user (20 years ) e-Cigarette/Vaping Use: Never Used Second Hand Smoke Exposure: Yes service: No Current occupational status: retired Cognitive needs: No Hearing needs: No Vision needs: Yes (glasses) Questionnaire PHQ-9 Over the last 2 weeks, how often have you been bothered by any of the following problems? 1. Little interest or pleasure in doing things: not at all 2. Feeling down, depressed, or hopeless: not at all 3. Trouble falling or staying asleep, or sleeping too much: not at all 4. Feeling tired or having little energy: not at all 5. Poor appetite or overeating: not at all 6. Feeling bad about yourself - or that you are a failure or have let yourself or your family down: not at all 7. Trouble concentrating on things, such as reading the newspaper or watching television: not at all 8. Moving or speaking so slowly that other people could have noticed. Or the opposite - being so fidgety or restless that you have been moving around a lot more than usual: not at all 9. Thoughts that you would be better off or of hurting yourself in some way: not at all Total score: 0 Depression Screening Interpretation: Negative Depression Screening Done: Yes 38030 - PHQ-9 Billing: Yes Source: Developed by Drs. Constantin Badillo, Ana Paula Young, Alireza Cadena and colleagues, with an educational pretty from [email or web address]. Thrive Questionnaire Date Thrive assessed: 09/04/24 I am a: Patient What is your living situation today?: I have a steady place to live Within the past 12 months, did the food you bought not last and you didn't have the money to get more?: Never true Within the past 12 months, did you worry whether your food would run out before you got money to buy more?: Never true Do you have trouble paying for medicines?: No Do you have trouble getting transportation to medical appointments?: No Do you have trouble paying your heating and electricity bill?: No Do you have trouble taking care of your child, family member or friend?: No Do you have trouble with day-to-day activities such as bathing, preparing meals, shopping, managing finances, etc.?: No Are you currently unemployed and looking for a job?: No Are you interested in more education?: No Please select the resources that you would like help with: None Currently or been in a relationship where the following occur: No concerns reported THRIVE Score: 0 AUDIT C Alcohol Use Questionnaire (AUDIT-C) 1. How often do you have a drink containing alcohol?: Never 3. How often do you have six or more drinks on one occasion?: Never Total Score: 0 SHANIKA-7 AMB Questionnaire SHANIKA-7 Date SHANIKA - 7 assessed: 09/04/24 Feeling nervous, anxious, or on edge: 0 = Not at all Not being able to stop or control worryin = Not at all Worrying too much about different things: 0 = Not at all Trouble relaxin = Not at all Being so restless that it is hard to sit still: 0 = Not at all Becoming easily annoyed or irritable: 0 = Not at all Feeling afraid as if something awful might happen: 0 = Not at all Total SHANIKA-7 score (0-4 normal; 5-9 mild; 10-14 moderate; 15-21 severe): 0 Source: Developed by Drs. Constantin Badillo, Ana Paula Young, Alireza Cadena and colleagues, with an educational pretty from [email or web address]. SHANIKA-7 Assessment Billing SHANIKA-7 Assessment Tool: SHANIKA-7 Assessment 28847 Review of Systems Const Denies headache(s) Eyes Denies loss of vision ENT Denies vertigo, Denies dizziness, Denies headache(s) and Denies sore throat Card Denies chest pain, Denies leg edema and Denies lightheadedness Resp Denies cough, Denies hemoptysis and Denies wheezing GI Denies abdominal pain, Denies melena, Denies constipation, Denies diarrhea and Denies vomiting Denies urinary frequency, Denies dysuria and Denies urinary urgency Musc Denies arthralgias, Denies joint swelling, Denies numbness and Denies tingling Neuro Denies Abnormal speech present, Denies behavioral changes, Denies vertigo, Denies dizziness, Denies headache(s), Denies loss of vision, Denies memory loss, Denies numbness and Denies tingling Psych Denies anxiety, Denies behavioral changes, Denies depression, Denies memory loss and Denies panic attacks Blaze/Lymph Denies easy bleeding and Denies easy bruising Aller/Immun Denies wheezing Physical exam (Primary Care) Vital Signs: Last Vital Signs Pulse 70 09/04/24 09:35 BP 142/72 H 09/04/24 09:35 Pulse Ox 99 09/04/24 09:35 Oxygen Delivery Method Room Air 09/04/24 09:35 BMI result Body Mass Index 16.6 Tobacco/Smoking Status: Tobacco use Status Tobacco use date assessed 09/25/23 09/04/24 09:38 Patient Tobacco Use Status Former Tobacco user (20 09/04/24 09:38 years ) e-Cigarette/Vaping Use Never Used 09/04/24 09:38 PHQ-9: PHQ-9 Score PHQ-9: Total score 0 09/04/24 09:54 Depression Screening Interpretation: Negative Thrive Assessment: Date of Thrive Assessment Date Thrive assessed 09/04/24 09/04/24 09:38 Currently or been in a relationship where the following occur: No concerns reported Const General: healthy appearing, no acute distress, alert and awake Nutritional Appearance: well nourished Orientation/consciousness: oriented to person, oriented to place and oriented to time HENMT Ears: TM's normal bilaterally General nose exam: Normal nasal mucous membranes and turbinates present Eyes Conjunctivae: conjunctivae normal Sclerae: sclerae normal Pupils: Equal, round and reactive pupils present Neck Neck: Yes no lymphadenopathy and Yes no JVD Thyroid: Thyroid normal Carotids: no bruits Resp Effort & Inspection: normal respiratory effort and not tachypneic Auscultation: no crackles, no rales, no rhonchi and no wheezes Cardio Rate: regular rate Rhythm: regular rhythm Heart sounds: no murmurs and normal S1 and S2 GI Palpation (GI): Soft to palpation, nontender, no hepatomegaly and no splenomegaly Auscultation: normal bowel sounds Skin General skin exam: no rashes or lesions noted and dry skin Neuro General: oriented to person, oriented to place and oriented to time Cranial nerves: Yes Equal, round and reactive pupils present Speech: No Abnormal speech present Gait exam (Neuro): Normal gait present Motor exam (neuro): no tremor noted Extrem Right upper extremity: full ROM Left upper extremity: full ROM Right lower extremity: full ROM; no edema Left lower extremity: full ROM; no edema Psych Mental Status: mental status grossly normal Speech and movement: Normal speech and movement present Affect: normal affect Attitude: cooperative Thought process: Normal thought process present Coding Level of Care Code Est Pt Level 3 (75665) Diagnoses Age-related osteoporosis without current pathological fracture M81.0 Osteoporosis type: age-related Presence of current pathological fracture: without current pathological fracture B12 deficiency E53.8 Additional Codes SHANIKA-7 Assessment Billing - SHANIKA-7 Assessment Tool: SHANIKA-7 Assessment 39608 ([id number]) PHQ-9 - 60165 - PHQ-9 Billing: Yes ([id number]) Assessment & Plan Assessment & Plan (1) Osteoporosis: Code(s): M81.0 - Age-related osteoporosis without current pathological fracture Category: Medical Qualifiers: Osteoporosis type: age-related Presence of current pathological fracture: without current pathological fracture Qualified Code(s): M81.0 - Age-related osteoporosis without current pathological fracture Plan: Patient continues on Fosamax weekly. Most recent bone density showing low T-score at -2.8. Will continue with vitamin-D and calcium supplementation (2) B12 deficiency: Code(s): E53.8 - Deficiency of other specified B group vitamins Category: Medical Plan: Most recent labs showing elevated B12 levels. Patient has stopped using B12 supplementation. Orders: Orders Vitamin B12 and Folate 09/04/24 E53.8 - Deficiency of other specified B group vitamins Comprehensive [place]. Panel Fast 09/04/24 Z13.1 - Encounter for screening for diabetes mellitus Complete Blood Count no Diff 09/04/24 Z13.1 - Encounter for screening for diabetes mellitus Vitamin D 25-OH Total 09/04/24 M81.0 - Age-related osteoporosis without current pathological fracture Medications: New calcium carbonate-vitamin D3 500 mg-10 mcg (400 unit) (Oyster Shell Calcium-Vitamin D3) 1 tab PO BID 180 tabs 1RF 90 days M81.0 - Age-related osteoporosis without current pathological fracture On Hold cyanocobalamin (vitamin B-12) Hold Comment: Doctor's Order 1,000 mcg PO DAILY 90 days 90 tabs 1RF M81.0 - Age-related osteoporosis without current pathological fracture
== END 2024-09-04 10:09 | disposition home or self-care (01) ==
PROVIDERS: PCP Physician Assistant; Visit Provider Physician Assistant
DX: M81.0 Age-related osteoporosis without current pathological fracture (principal); E53.8 Deficiency of other specified B group vitamins

== ENCOUNTER → 2024-09-04 08:57 | Outpatient (BNVA) | payer OTHER, SELFPAY | PROVIDERS: PCP Physician Assistant; Visit Provider Physician Assistant | DX: M81.0 Age-related osteoporosis without current pathological fracture (principal); E53.8 Deficiency of other specified B group vitamins | CPT/HCPCS: 96127 ==

== ENCOUNTER 2025-03-03 06:04 | Outpatient (REF) | payer OTHER, SELFPAY ==
--- OUTSIDE RECORDS SUMMARY | 2025-03-03 06:08 | XMS_ITS | Data Portability ---
Author Organization [place] - [facility], [facility], [facility] - [facility] Address [address] [place] [address] [address] [place] [address] Assessment No assessment recorded. Plan of Treatment Reminders Order Date Submit Date Provider Last Modified By Organization Details Last Modified Time Details Appointments None recorded. Lab None recorded. Referral None recorded. Procedures None recorded. Surgeries None recorded. Imaging MAMMO, screening, digital, bilateral - 3D [address] [place] [address], [address] [place] [address] Dr Bautista, [address], [place], [address], 3 16:41:37 DEXA, axial skeleton [email or web address] [place] [address], [address] [place] [address] Dr Bautista, [address], [place], [address], 3 16:41:37 Medication Orders alendronate 70 mg tablet 2022 023 [email or web address] [id number], [address], [place], [place], [id number], 3 16:16:07 alendronate 70 mg tablet 2022 023 [id number], [address] [facility], [place], [address], 3 16:24:38 Patient TargetsNo targets recorded. Patient InstructionsNo instructions recorded. Reason for Referral None Reported. Results Created Date Observation Date Name Description Value Unit Range Abnormal Flag Note LastModifiedBy Organization Detail LastModifiedTime 06/29/20 23 07/04/2022 imagi ng/di agnos tic resul t No observ ation record ed. [email or web address] Not Available 07:50:10 Result Notes None recorded. 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 Not Available [facility] 3 10:04:08 Abscess of skin and/or subcutane ous tissue 90160739 Active 2021 Problem Code: L02.91; Problem Code Type: ICD10; Not Available [facility] 3 10:04:08 Celluliti s 970560147 Active 2021 Problem Code: L03.90; Problem Code Type: ICD10; Not Available [facility] 3 10:04:07 Osteoporo sis 93390160 Active 2021 Problem Code: M81.0; Problem Code Type: ICD10; Not Available [facility] 3 10:04:08 Finding of palpation of heart 671441696 Active 2021 Not Available [facility] 3 10:04:08 Diabetes mellitus screening Active 2021 Problem Code: Z13.1; Problem Code Type: ICD10; Not Available [facility] 3 10:04:08 Endocrine /metaboli c screening Active 2021 Problem Code: Z13.29; Problem Code Type: ICD10; Not Available [facility] 3 10:04:08 Depressio n screening Active 2021 Problem Code: Z13.31; Problem Code Type: ICD10; Not Available [facility] 3 10:04:08 Influenza vaccine needed 013715848677 6 Active 2021 Problem Code: Z23; Problem Code Type: ICD10; Not Available [facility] 3 10:04:07 Finding of body mass index 771032910 Active 2021 Problem Code: Z68.1; Problem Code Type: ICD10; Not Available [facility] 3 10:04:08 Personal history of primary malignant neoplasm of breast 848546651 Active 2021 Problem Code: Z85.3; Problem Code Type: ICD10; Not Available [facility] 3 10:04:08 Celluliti s of finger of left hand [id number] 30995 Active 2021 Problem Code: L03.012; Problem Code Type: ICD10; Not Available [facility] 3 10:04:07 Hyperlipi demia screening Active 2021 Not Available [facility] 3 10:04:08 General examinati on of patient Active 2021 ProblemC ode: 'Z00.01' ; ProblemC odeType: 'ICD10'; Not Available [facility] 3 10:04:08 Problem Notes None recorded. Procedures Surgical History Date Name Laterality Status Provider Name and Address Organization Details Recorded Time operation on breast completed Not Available [facility] 11/09/2022 18:22:55 Imaging Results None recorded. Procedure Notes None recorded. Medical Equipment None Reported. Allergies No known drug allergies Medications Name Sig Start Date Stop Date Status Note LastModified by Organization Details LastModified Time Singulair 10 mg tablet Singulair 10 mg tablet Take 1 Tablet(s) Oral every night at bedtime 02/09 completed Not Available Not Available Not Available alendronate 70 mg tablet alendrona te 70 mg tablet Take 1 Tablet(s) Oral once a week 11/06 completed Not Available Not Available Not Available famotidine 20 mg tablet TAKE ONE TABLET BY MOUTH TWICE A DAY FOR 7 DAYS ,AVOID EATING AND DRINKING FOR 10 MINUTES AFTER EACH DOSE 12/27 completed Not Available Not Available Not Available betamethaso ne dipropionat e 0.05 % topical cream APPLY A THIN LAYER TO AFFECTED AREA(S) TOPICALLY ONE TIME DAILY 12/27 completed Not Available Not Available Not Available mupirocin 2 % topical ointment APPLY A SMALL AMOUNT TO THE AFFECTED AREA BY TOPCIAL ROUTE THREE TIMES A DAY 12/27 completed Not Available Not Available Not Available ibuprofen 600 mg tablet TAKE ONE TABLET BY MOUTH THREE TIMES A DAY NEEDED FOR 7 DAYS. NOT TO EXCEED 3200 MG PER DAY. 12/27 completed Not Available Not Available Not Available betamethaso ne dipropionat e 0.05 % lotion APPLY A FEW DROPS TO THE AFFECTED AREA(S) TOPICALLY TWICE DAILY IN THE MORNING AND AT BEDTIME, RUB IN GENTLY AND COMPLETEL Y 12/27 completed Not Available Not Available Not Available doxycycline hyclate 100 mg tablet doxycycli ne hyclate 100 mg tablet Take 1 Tablet(s) Oral two times a day 06/21 completed Not Available Not Available Not Available amoxicillin 875 mg-potassiu m clavulanate 125 mg tablet amoxicill in 875 mg-potass ium clavulana te 125 mg tablet Take 1 Tablet(s) Oral two times a day; D/C Reason: Discontin ued 06/11 completed Not Available Not Available Not Available Zyrtec active Not Available Not Availa ble Not Available Prolia 60 mg/mL subcutaneou s syringe Prolia 60 mg/mL subcutane ous syringe Take 1 Millilite r(s) Subcutane ous every six months; D/C Reason: Discontin ued 08/13 completed Not Available Not Available Not Available Flowflex COVID-19 Antigen Home Test kit USE DIRECTED 12/27 completed Not Available Not Available Not Available Vitals Date Recorded Body height Respiratory rate Body temperature Body mass index (BMI) Body weight Heart rate Oxygen saturation Oxygen saturation in Arterial blood by Pulse oximetry Systolic blood pressure Diastolic blood pressure Provider Name and Address Organization Details Last Updated DateTime 3 150.368 cm 16 /min 97.9 [degF] 17.7 kg/m2 92237.1 3 g 78 /min 98 % 98 % 146 mm[Hg] 78 mm[Hg] Pamela VARMA - [facility] 3 16:12:30 Social History None recorded. Functional Status None recorded. Mental Status None recorded. Family History Nothing Reported. Medical History No medical history recorded. Gynecological HistoryNo gynecological history recorded. Obstetrics History GPAL:G 0 P 0 0 0 0 Immunizations Vaccine Type Date Status Note Provider Nam e and Address Organization Details Recorded Time Tdap 9 completed Not Available [facility] 11/10/2022 07:06:25 Influenza, split virus, trivalent, preservative 2 completed Not Available [facility] 01/17/2023 15:40:35 Influenza, split virus, trivalent, preservative 2 completed Not Available [facility] 11/10/2022 07:06:26 SARS-COV-2 (COVID-19) vaccine, UNSPECIFIED 1 completed Not Available [facility] 11/10/2022 07:06:26 SARS-COV-2 (COVID-19) vaccine, UNSPECIFIED 1 completed Not Available [facility] 11/10/2022 07:06:26 SARS-COV-2 (COVID-19) vaccine, UNSPECIFIED 2 completed Not Available [facility] 11/10/2022 07:06:26 SARS-COV-2 (COVID-19) vaccine, UNSPECIFIED 2 completed Not Available [facility] 11/10/2022 07:06:27 SARS-COV-2 (COVID-19) vaccine, UNSPECIFIED 1 completed Not Available [facility] 11/10/2022 07:06:27 Past Encounters Encounter ID Performer Location Encounter Start Date Encounter Closed Date Diagnosis/Indication Diagnosis SNOMED-CT Code Diagnosis ICD10 Code Diagnosis Note [id number] DO Fernandez [facility] [address] [place] [address] [place] [address] 12/27/2022 15:55:46 12/27/2022 16:41:37 Osteoporosis 89616290 M81.0 Body mass index less than 20 606266548 Z68.1 Screening mammography 24 442454 Z12.31 Health Concerns Section Related Observation LastModified by Organization Detai ls LastModified Time None Recorded Concern Status LastModified by Organization Details LastModified Time None Recorded Advance Directives Directive None Recorded Payers Insurance Date Sequence Insurance Name Policy Number Policy Rodriguez Covered Member ID Rodriguez Member ID Guarantor Name 06/20/2023 1 [employer] - GOLD PLUS (MEDICARE REPLACEMENT/A DVANTAGE - HMO) Ambika Santos [id number] Ambika Santos 12/27/2022 1 *SELF PAY* Do deisy Tom Notes Date Note Type Note Provider Name and Address Organization Details Recorded Time 12/27/2022 text/html 77 yo female pre sents today for a follow-up. They are moving back to [place] and need refills and orders Pt has a hx of left breast cancer, stage 0. She had a lumpectomy and radiation. No Chemo was recommended. No longer seeing an Oncologist. Last Mammogram was 03/2022 Pt has osteoporosis and is on Prolia q6 mo and has been on it for more than 8 years. No issues with Bisphosphonates in the past. 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 Pt has a mild cardiac murmur, last Echo was more than a year ago Denies any cardiopulmonary, GI or complaints. Last Pap years ago, no hx of abnormals. Last Mammogram was 03/2022 Last Colonoscope 2020, has on hemorrhoids. No polyps this time but has a hx of polyps. SHANNAN IBARRA, [address] [place] [address] [place], [address], [facility] - [facility], [facility] 12/27/2022 16:45:15 OBGyn Episode No OBEpisode recorded.
[2025-03-03 07:41] LABS: Hematocrit 39.4 % (37.0-47.0); Hemoglobin 13.3 g/dl (12.0-16.0); Mean Corpuscular HGB Conc 33.8 g/dl (31.0-35.0); Mean Corpuscular Hemoglobin 31.1 pg (27.0-33.0); Mean Corpuscular Volume 92.3 fL (80.0-98.0); Mean Platelet Volume 11.6 fL (9.4-12.3); Platelet Count 143 X10*3/uL (160-400); Red Blood Count 4.27 X10*6/uL (4.20-5.50); Red Cell Distribution Width 13.2 % (11.0-16.0)
[2025-03-03 08:00] LABS: Alanine Aminotransferase 19 U/L (0-31); Albumin Level 4.4 g/dL (3.5-5.0); Alkaline Phosphatase 67 U/L (39-117); Anion Gap 12 (12-20); Aspartate Amino Transferase 31 U/L (5-31); Bilirubin Total 1.2 mg/dL (0.0-1.0); Blood Urea Nitrogen 15 mg/dL (9-16); Calcium 9.8 mg/dL (8.4-10.2); Carbon Dioxide 29 mmol/L (22-29); Chloride 107 mmol/L (96-108); Estimated Glomerular Filt Rate > 60; Glucose Fasting 82 mg/dL (60-99); Potassium 4.3 mmol/L (3.3-5.1); Sodium 144 mmol/L (135-145)
[2025-03-03 08:29] LABS: Folate 10.2 ng/mL (> or = 4.0); Vitamin B12 411 pg/mL (200-900)
== END 2025-03-03 06:05 | disposition home or self-care (01) ==
LOC: HO.LAB 06:04
PROVIDERS: PCP Physician Assistant; Visit Provider Physician Assistant
DX: Z13.1 Encounter for screening for diabetes mellitus (principal); E53.8 Deficiency of other specified B group vitamins; M81.0 Age-related osteoporosis without current pathological fracture
CPT/HCPCS: 36415; 80053; 82306; 82607; 82746; 85027

== ENCOUNTER 2025-03-05 10:50 | Outpatient (AMB) | payer OTHER, SELFPAY ==
[2025-03-05 11:12] VITALS: BP 124/60; PULSE 64; TEMP 36.2; O2SAT 98; BMI 16.4
--- NOTE | 2025-03-05 11:12 | A.OFFPC_ITS ---
Vital Signs 03/05/25 11:12 Height 4 ft 11 in Weight 81 lb 6 oz BMI 16.4 BP 124/60 Blood Pressure Location Lt brachial Position Sitting Pulse 64 Pulse Source Pulse Oximeter Temp 97.1 F Temp Source Temporal Artery Scan Pulse Oximetry (%) 98 Oxygen Delivery Method Room Air Intake Visit Reasons: 6mth f/u Regulatory Affairs Manager Required: No Accompanied by: Self / Same As Patient Allergies No Known Allergies Allergy (Verified 03/05/25 11:21) Medication List - Last Reconciled 03/05/25 by Vini Dejesus PA-C alendronate 70 mg PO QWEEK 12 weeks ascorbate calcium (vitamin C) 500 mg PO DAILY calcium carbonate-vitamin D3 500 mg-10 mcg (400 unit) (Oyster Shell Calcium- Vitamin D3) 1 tab PO BID 90 days chlorhexidine gluconate 0.12% 15 mL buccal BID cholecalciferol (vitamin D3) 25 mcg PO DAILY cyanocobalamin (vitamin B-12) 1,000 mcg PO DAILY 90 days Held on 09/04/24. Instructions: Doctor's Order fluocinolone acetonide oil 0.01% 2 drps otic (ears) hydrocortisone 2.5% 1 appl topical BID loratadine 10 mg PO DAILY Tobacco use date assessed: 03/05/25 Fall risk assessment: No Falls in past year Last assessed Fall Risk: 03/05/25 Dental Screening Dental Screen Date: 03/05/25 Did you have a dental visit in the last 12 months?: Yes Did you have a dental problem in the last 6 months where you did not have access to dental care?: No Was dental information given to patient?: Patient has dentist HPI 6mth f/u HPI Details Patient is a 79-year-old female here today for a follow-up visit Patient has a past medical history significant for breast cancer diagnosed in 2018- Lumpectomy, s/p radiation, low BMI, osteoporosis. Concern---> recently working in the garden and sustained a cut over her right olecranon process of her right elbow. Has some surrounding edema and redness. CHRONIC MEDICAL CONDITIONS--> .. h/o beast cancer - Gets mammo yearly , like to transition to [place] to get her mammograms .. Osteoporosis: Most recent bone density showing T-score of -2.8 IN 2023 in the lumbar spine and femoral neck. She continues on Fosamax once weekly. She cannot recall any recent bone densi ty screening. Will order bone density to evaluate her bone mineral density. [facility] Medical History Cellulitis Surgical History History of nasal surgery History of lumpectomy Social History Housing: Apartment Alcohol intake: current Alcohol intake frequency: holidays/special occasions only Patient Tobacco Use Status: Former Tobacco user (20 years ) e-Cigarette/Vaping Use: Never Used Second Hand Smoke Exposure: Yes service: No Current occupational status: retired Cognitive needs: No Hearing needs: No Vision needs: Yes (glasses) Questionnaire PHQ-9 Over the last 2 weeks, how often have you been bothered by any of the following problems? 1. Little interest or pleasure in doing things: not at all 2. Feeling down, depressed, or hopeless: not at all 3. Trouble falling or staying asleep, or sleeping too much: not at all 4. Feeling tired or having little energy: not at all 5. Poor appetite or overeating: not at all 6. Feeling bad about yourself - or that you are a failure or have let yourself or your family down: not at all 7. Trouble concentrating on things, such as reading the newspaper or watching television: not at all 8. Moving or speaking so slowly that other people could have noticed. Or the opposite - being so fidgety or restless that you have been moving around a lot more than usual: not at all 9. Thoughts that you would be better off or of hurting yourself in some way: not at all Total score: 0 Depression Screening Interpretation: Negative Depression Screening Done: Yes 76182 - PHQ-9 Billing: Yes Source: Developed by Drs. Constantin Badillo, Ana Paula Young, Alireza Cadena and colleagues, with an educational pretty from [employer]. Thrive Questionnaire Date Thrive assessed: 03/05/25 I am a: Patient What is your living situation today?: I have a steady place to live Within the past 12 months, did the food you bought not last and you didn't have the money to get more?: Never true Within the past 12 months, did you worry whether your food would run out before you got money to buy more?: Never true Do you have trouble paying for medicines?: No Do you have trouble getting transportation to medical appointments?: No Do you have trouble paying your heating and electricity bill?: No Do you have trouble taking care of your child, family member or friend?: No Do you have trouble with day-to-day activities such as bathing, preparing meals, shopping, managing finances, etc.?: No Are you currently unemployed and looking for a job?: No Are you interested in more education?: No Please select the resources that you would like help with: None Currently or been in a relationship where the following occur: No concerns reported THRIVE Score: 0 AUDIT C Alcohol Use Questionnaire (AUDIT-C) 1. How often do you have a drink containing alcohol?: Never 3. How often do you have six or more drinks on one occasion?: Never Total Score: 0 SHANIKA-7 AMB Questionnaire SHANIKA-7 Date SHANIKA - 7 assessed: 03/05/25 Feeling nervous, anxious, or on edge: 0 = Not at all Not being able to stop or control worryin = Not at all Worrying too much about different things: 0 = Not at all Trouble relaxin = Not at all Being so restless that it is hard to sit still: 0 = Not at all Becoming easily annoyed or irritable: 0 = Not at all Feeling afraid as if something awful might happen: 0 = Not at all Total SHANIKA-7 score (0-4 normal; 5-9 mild; 10-14 moderate; 15-21 severe): 0 Source: Developed by Drs. Constantin Badillo, Ana Paula Young, Alireza Cadena and colleagues, with an educational pretty from [employer]. SHANIKA-7 Assessment Billing SHANIKA-7 Assessment Tool: SHANIKA-7 Assessment 34616 Review of Systems Const Denies headache(s) Eyes Denies loss of vision ENT Denies vertigo, Denies dizziness, Denies headache(s) and Denies sore throat Card Denies chest pain, Denies leg edema and Denies lightheadedness Resp Denies cough, Denies hemoptysis and Denies wheezing GI Denies abdominal pain, Denies melena, Denies constipation, Denies diarrhea and Denies vomiting Denies urinary frequency, Denies dysuria and Denies urinary urgency Musc Denies arthralgias, Denies joint swelling, Denies numbness and Denies tingling Neuro Denies Abnormal speech present, Denies behavioral changes, Denies vertigo, Denies dizziness, Denies headache(s), Denies loss of vision, Denies memory loss, Denies numbness and Denies tingling Psych Denies anxiety, Denies behavioral changes, Denies depression, Denies memory loss and Denies panic attacks Blaze/Lymph Denies easy bleeding and Denies easy bruising Aller/Immun Denies wheezing Physical exam (Primary Care) Vital Signs: Last Vital Signs Temp 97.1 F 03/05/25 11:12 Pulse 64 03/05/25 11:12 BP 124/60 03/05/25 11:12 Pulse Ox 98 03/05/25 11:12 Oxygen Delivery Method Room Air 03/05/25 11:12 BMI result Body Mass Index 16.4 Tobacco/Smoking Status: Tobacco use Status Tobacco use date assessed 03/05/25 03/05/25 11:15 Patient Tobacco Use Status Former Tobacco user (20 03/05/25 11:15 years ) e-Cigarette/Vaping Use Never Used 03/05/25 11:15 PHQ-9: PHQ-9 Score PHQ-9: Total score 0 03/05/25 11:15 Depression Screening Interpretation: Negative Thrive Assessment: Date of Thrive Assessment Date Thrive assessed 03/05/25 03/05/25 11:15 Currently or been in a relationship where the following occur: No concerns reported Const General: healthy appearing, no acute distress, alert and awake Nutritional Appearance: well nourished Orientation/consciousness: oriented to person, oriented to place and oriented to time HENMT Ears: TM's normal bilaterally General nose exam: Normal nasal mucous membranes and turbinates present Eyes Conjunctivae: conjunctivae normal Sclerae: sclerae normal Pupils: Equal, round and reactive pupils present Neck Neck: Yes no lymphadenopathy and Yes no JVD Thyroid: Thyroid normal Carotids: no bruits Resp Effort & Inspection: normal respiratory effort and not tachypneic Auscultation: no crackles, no rales, no rhonchi and no wheezes Cardio Rate: regular rate Rhythm: regular rhythm Heart sounds: no murmurs and normal S1 and S2 GI Palpation (GI): Soft to palpation, nontender, no hepatomegaly and no splenomegaly Auscultation: normal bowel sounds Skin General skin exam: no rashes or lesions noted and dry skin Neuro General: oriented to person, oriented to place and oriented to time Cranial nerves: Yes Equal, round and reactive pupils present Speech: No Abnormal speech present Gait exam (Neuro): Normal gait present Motor exam (neuro): no tremor noted Extrem Other: RIGHT ELBOW: HEALING WOUND SOME SURROUNDING ERYTHEMA Right upper extremity: full ROM Left upper extremity: full ROM Right lower extremity: full ROM; no edema Left lower extremity: full ROM; no edema Psych Mental Status: mental status grossly normal Speech and movement: Normal speech and movement present Affect: normal affect Attitude: cooperative Thought process: Normal thought process present Coding Level of Care Code Est Pt Level 4 (86497) Diagnoses Age-related osteoporosis without current pathological fracture M81.0 Osteoporosis type: age-related Presence of current pathological fracture: without current pathological fracture B12 deficiency E53.8 Cellulitis of right elbow L03.113 Additional Codes SHANIKA-7 Assessment Billing - SHANIKA-7 Assessment Tool: SHANIKA-7 Assessment 03732 ([id number]) PHQ-9 - 53363 - PHQ-9 Billing: Yes ([id number]) Assessment & Plan Assessment & Plan (1) Osteoporosis: Code(s): M81.0 - Age-related osteoporosis without current pathological fracture Category: Medical Qualifiers: Osteoporosis type: age-related Presence of current pathological fracture: without current pathological fracture Qualified Code(s): M81.0 - Age- related osteoporosis without current pathological fracture Plan: Patient continues on Fosamax weekly. Most recent bone density showing low T- score at -2.8. Will continue with vitamin-D and calcium supplementation (2) B12 deficiency: Code(s): E53.8 - Deficiency of other specified B group vitamins Category: Medical Plan: Most recent labs showing elevated B12 levels. Patient has stopped using B12 supplementation. (3) Cellulitis of right elbow: Code(s): L03.113 - Cellulitis of right upper limb Category: Medical Plan: Patient has an open wound with some surrounding redness over her right elbow, will supply patient with the antibiotic out of an abundance of caution, advised to use topical triple antibiotic ointment on the area. Medications: New amoxicillin 875 mg PO BID 14 tabs 0RF 7 days L03.113 - Cellulitis of right upper limb
--- OUTSIDE RECORDS SUMMARY | 2025-03-05 12:22 | XMS_ITS | Data Portability ---
Demographics Address [address] [place] [address] Home Phone Mobile Phone Email Address Preferred Language en Marital Status Anglican Affiliation Unknown Race Unknown Ethnic Group Unknown Author Organization [place] - [facility], [facility], [facility] - [facility] Address [address] [place] [address] [address] [place] [id number] Assessment No assessment recorded. Plan of Treatment Reminders Order Date Submit Date Provider Last Modified By Organization Details Last Modified Time Details Appointments None recorded. Lab None recorded. Referral None recorded. Procedures None recorded. Surgeries None recorded. Imaging MAMMO, screening, digital, bilateral - 3D [address] [place] [address], [address] [place] [address] [address] Bautista, [address], [place], [address], 3 16:41:37 DEXA, axial skeleton [address] [facility] [place] [address], [address] [place] [address] [address] Bautista, [address], [place], [address], 3 16:41:37 Medication Orders alendronate 70 mg tablet 2022 023 [id number], [address], [place], [place], [id number], 3 16:16:07 alendronate 70 mg tablet 2022 023 [id number], [address] [facility], [place], [address], 3 16:24:38 Patient TargetsNo targets recorded. 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 Not Available [facility] 3 10:04:08 Abscess of skin and/or subcutane ous tissue 61536828 Active 2021 Problem Code: L02.91; Problem Code Type: ICD10; Not Available [facility] 3 10:04:08 Celluliti s 085510677 Active 2021 Problem Code: L03.90; Problem Code Type: ICD10; Not Available [facility] 3 10:04:07 Osteoporo sis 46123329 Active 2021 Problem Code: M81.0; Problem Code Type: ICD10; Not Available [facility] 3 10:04:08 Finding of palpation of heart 121445130 Active 2021 Not Available [facility] 3 10:04:08 Diabetes mellitus screening Active 2021 Problem Code: Z13.1; Problem Code Type: ICD10; Not Available [facility] 3 10:04:08 Endocrine /metaboli c screening Active 2021 Problem Code: Z13.29; Problem Code Type: ICD10; Not Available [facility] 3 10:04:08 Depressio n screening Active 2021 Problem Code: Z13.31; Problem Code Type: ICD10; Not Available [facility] 3 10:04:08 Influenza vaccine needed 538284700857 6 Active 2021 Problem Code: Z23; Problem Code Type: ICD10; Not Available [facility] 3 10:04:07 Finding of body mass index 346712854 Active 2021 Problem Code: Z68.1; Problem Code Type: ICD10; Not Available [facility] 3 10:04:08 Personal history of primary malignant neoplasm of breast 452303815 Active 2021 Problem Code: Z85.3; Problem Code Type: ICD10; Not Available [facility] 3 10:04:08 Celluliti s of finger of left hand 053123910873 95620 Active 2021 Problem Code: L03.012; Problem Code Type: ICD10; Not Available [facility] 3 10:04:07 Hyperlipi demia screening Active 2021 Not Available [facility] 3 10:04:08 General examinati on of patient Active 2021 ProblemC ode: 'Z00.01' ; ProblemC odeType: 'ICD10'; Not Available [facility] 3 10:04:08 Problem Notes None recorded. Procedures Surgical History Date Name Laterality Status Provider Name and Address Organization Details Recorded Time operation on breast completed Not Available [facility] 11/09/2022 18:22:55 Imaging Results None recorded. Procedure [...] cm 16 /min 97.9 [degF] 17.7 kg/m2 50025.1 3 g 78 /min 98 % 98 % 146 mm[Hg] 78 mm[Hg] Pamela VARMA - [facility] 3 16:12:30 Social History None recorded. Functional Status None recorded. Mental Status None recorded. Family History Nothing Reported. Medical History No medical history recorded. Gynecological HistoryNo gynecological history recorded. Obstetrics History GPAL:G 0 P 0 0 0 0 Immunizations Vaccine Type Date Status Note Provider Nam e and Address Organization Details Recorded Time Tdap 9 completed Not Available [facility] 11/10/2022 07:06:25 Influenza, split virus, trivalent, preservative 2 completed Not Available [facility] 01/17/2023 15:40:35 Influenza, split virus, trivalent, preservative 2 completed Not Available [facility] 11/10/2022 07:06:26 SARS-COV-2 (COVID-19) vaccine, UNSPECIFIED 1 completed Not Available [facility] 11/10/2022 07:06:26 SARS-COV-2 (COVID-19) vaccine, UNSPECIFIED 1 completed Not Available [facility] 11/10/2022 07:06:26 SARS-COV-2 (COVID-19) vaccine, UNSPECIFIED 2 completed Not Available [facility] 11/10/2022 07:06:26 SARS-COV-2 (COVID-19) vaccine, UNSPECIFIED 2 completed Not Available [facility] 11/10/2022 07:06:27 SARS-COV-2 (COVID-19) vaccine, UNSPECIFIED 1 completed Not Available [facility] 11/10/2022 07:06:27 Past Encounters Encounter ID Performer Location Encounter Start Date Encounter Closed Date Diagnosis/Indication Diagnosis SNOMED-CT Code Diagnosis ICD10 Code Diagnosis Note [id number] DO Fernandez [facility] [address] [place] [address] [place] [id number] 12/27/2022 15:55:46 12/27/2022 16:41:37 Osteoporosis 62333165 M81.0 Body mass index less than 20 446902808 Z68.1 Screening mammography 24 727902 Z12.31 Health Concerns Section Related Observation LastModified by Organization Detai ls LastModified Time None Recorded Concern Status LastModified by Organization Details LastModified Time None Recorded Advance Directives Directive None Recorded Payers Insurance Date Sequence Insurance Name Policy Number Policy Rodriguez Covered Member ID Rodriguez Member ID Guarantor Name 06/20/2023 1 [employer] - GOLD PLUS (MEDICARE REPLACEMENT/A DVANTAGE - HMO) Ambika Santos [id number] Ambika Santos 12/27/2022 1 *SELF PAY* Do deisy Tom Notes Date Note Type Note Provider Name and Address Organization Details Recorded Time 12/27/2022 text/html 77 yo female pre sents today for a follow-up. They are moving back to [place] and need refills and orders Pt has [...] has a hx of polyps. SHANNAN IBARRA, [address] [place] [address] [place], [address], [facility] - [facility], [facility] 12/27/2022 16:45:15 OBGyn Episode No OBEpisode recorded.
== END 2025-03-05 11:39 | disposition home or self-care (01) ==
PROVIDERS: PCP Physician Assistant; Visit Provider Physician Assistant
DX: M81.0 Age-related osteoporosis without current pathological fracture (principal); E53.8 Deficiency of other specified B group vitamins; L03.113 Cellulitis of right upper limb

== ENCOUNTER → 2025-03-05 10:50 | Outpatient (BNVA) | payer OTHER, SELFPAY | PROVIDERS: PCP Physician Assistant; Visit Provider Physician Assistant | DX: M81.0 Age-related osteoporosis without current pathological fracture (principal); E53.8 Deficiency of other specified B group vitamins; L03.113 Cellulitis of right upper limb | CPT/HCPCS: 96127 ==

== ENCOUNTER 2025-06-30 13:22 | Outpatient (AMB) | payer OTHER, SELFPAY ==
--- NOTE | 2025-06-30 13:25 | A.OFFPC_ITS ---
Vital Signs 06/30/25 13:30 Height 4 ft 11 in Weight 86 lb 2 oz BMI 17.4 BP 120/62 Blood Pressure Location Rt brachial Position Sitting Pulse 76 Pulse Source Pulse Oximeter Temp 96.9 F Temp Source Temporal Artery Scan Pulse Oximetry (%) 97 Oxygen Delivery Method Room Air Intake Visit Reasons: annual exam Intake Note: Patient is here today for a physical. Cash Applications Associate Required: No Rail Equipment Operator: Not Required per policy Accompanied by: Self / Same As Patient Allergies No Known Allergies Allergy (Verified 06/30/25 13:40) Medication List - Last Reconciled 06/30/25 by Vini Dejesus PA-C alendronate 70 mg PO QWEEK 12 weeks ascorbate calcium (vitamin C) 500 mg PO DAILY calcium carbonate-vitamin D3 500 mg-10 mcg (400 unit) (Oyster Shell Calcium- Vitamin D3) 1 tab PO BID 90 days cholecalciferol (vitamin D3) 25 mcg PO DAILY cyanocobalamin (vitamin B-12) 1,000 mcg PO DAILY 90 days Held on 09/04/24. Instructions: Doctor's Order fluocinolone acetonide oil 0.01% 2 drps otic (ears) hydrocortisone 2.5% 1 appl topical BID loratadine 10 mg PO DAILY Tobacco use date assessed: 06/30/25 Fall risk assessment: No Falls in past year Last assessed Fall Risk: 06/30/25 Dental Screening Dental Screen Date: 03/05/25 [facility] annual exam HPI Details Patient is a 79-year-old female here today for a routine annual physical Patient has a past medical history significant for breast cancer diagnosed in 2018- Lumpectomy, s/p radiation, low BMI, osteoporosis. .. h/o beast cancer - Gets mammo yearly at [facility] .. Osteoporosis: Most recent bone density showing T-score of -2.8 IN 2023 in the lumbar spine and femoral neck. She continues on Fosamax once weekly. She cannot recall any recent bone density screening. Will order bone density to evaluate her bone mineral density. VAccine: UTD with PCV- 20 , FLu, RSV and COVID Colorectal cancer screening: No further [facility] Medical History Cellulitis Surgical History History of nasal surgery History of lumpectomy Social History Housing: Apartment Alcohol intake: current Alcohol intake frequency: holidays/special occasions only Patient Tobacco Use Status: Former Tobacco user (20 years ) e-Cigarette/Vaping Use: Never Used Second Hand Smoke Exposure: Yes service: No Current occupational status: retired Cognitive needs: No Hearing needs: No Vision needs: Yes (glasses) Questionnaire PHQ-9 Over the last 2 weeks, how often have you been bothered by any of the following problems? 1. Little interest or pleasure in doing things: not at all 2. Feeling down, depressed, or hopeless: not at all 3. Trouble falling or staying asleep, or sleeping too much: not at all 4. Feeling tired or having little energy: not at all 5. Poor appetite or overeating: not at all 6. Feeling bad about yourself - or that you are a failure or have let yourself or your family down: not at all 7. Trouble concentrating on things, such as reading the newspaper or watching television: not at all 8. Moving or speaking so slowly that other people could have noticed. Or the opposite - being so fidgety or restless that you have been moving around a lot more than usual: not at all 9. Thoughts that you would be better off or of hurting yourself in some way: not at all Total score: 0 Depression Screening Interpretation: Negative Depression Screening Done: Yes 55500 - PHQ-9 Billing: Yes Source: Developed by Drs. Constantin Badillo, Ana Paula Young, Alireza Cadena and colleagues, with an educational pretty from [employer]. Thrive Questionnaire Date Thrive assessed: 03/05/25 I am a: Patient What is your living situation today?: I have a steady place to live Within the past 12 months, did the food you bought not last and you didn't have the money to get more?: Never true Within the past 12 months, did you worry whether your food would run out before you got money to buy more?: Never true Do you have trouble paying for medicines?: No Do you have trouble getting transportation to medical appointments?: No Do you have trouble paying your heating and electricity bill?: No Do you have trouble taking care of your child, family member or friend?: No Do you have trouble with day-to-day activities such as bathing, preparing meals, shopping, managing finances, etc.?: No Are you currently unemployed and looking for a job?: No Are you interested in more education?: No Please select the resources that you would like help with: None Currently or been in a relationship where the following occur: No concerns reported THRIVE Score: 0 AUDIT C Alcohol Use Questionnaire (AUDIT-C) 1. How often do you have a drink containing alcohol?: Never Total Score: 0 SHANIKA-7 AMB Questionnaire SHANIKA-7 Date SHANIKA - 7 assessed: 03/05/25 Feeling nervous, anxious, or on edge: 0 = Not at all Not being able to stop or control worryin = Not at all Worrying too much about different things: 0 = Not at all Trouble relaxin = Not at all Being so restless that it is hard to sit still: 0 = Not at all Becoming easily annoyed or irritable: 0 = Not at all Feeling afraid as if something awful might happen: 0 = Not at all Total SHANIKA-7 score (0-4 normal; 5-9 mild; 10-14 moderate; 15-21 severe): 0 Source: Developed by Drs. Constantin Badillo, Ana Paula Young, Alireza Cadena and colleagues, with an educational pretty from [employer]. SHANIKA-7 Assessment Billing SHANIKA-7 Assessment Tool: SHANIKA-7 Assessment 44554 Review of Systems Const Denies body aches, Denies chills, Denies excessive sweating, Denies fatigue, Denies fever(s) and Denies headache(s) Eyes Denies blurry vision ENT Denies dysphagia, Denies vertigo, Denies dizziness, Denies headache(s), Denies hearing loss and Denies tinnitus Card Denies chest pain, Denies chest pain with activity, Denies syncope, Denies irregular heart rhythm and Denies dyspnea Resp Denies chest congestion, Denies cough, Denies hemoptysis, Denies dyspnea and Denies wheezing GI Denies abdominal pain, Denies melena, Denies hematochezia, Denies coffee ground emesis, Denies dysphagia, Denies diarrhea, Denies nausea and Denies vomiting Denies urinary frequency, Denies dysuria, Denies urinary hesitancy and Denies urinary urgency Musc Denies arthralgias, Denies limited range of motion, Denies muscle cramps and Den ies muscle weakness Skin/Breast Denies rash and Denies skin ulcer Neuro Denies Abnormal speech present, Denies confusion, Denies vertigo, Denies dizzi ness, Denies syncope, Denies headache(s), Denies memory loss and Denies seizure- like activity Psych Denies anxiety, Denies confusion, Denies depression, Denies memory loss, Denies panic attacks and Denies paranoia Endo Denies excessive sweating, Denies fatigue, Denies flushing, Denies polydipsia and Denies polyuria Aller/Immun Denies wheezing Physical exam (Primary Care) Vital Signs: Last Vital Signs Temp 96.9 F 06/30/25 13:30 Pulse 76 06/30/25 13:30 BP 120/62 06/30/25 13:30 Pulse Ox 97 06/30/25 13:30 Oxygen Delivery Method Room Air 06/30/25 13:30 BMI result Body Mass Index 17.4 BMI Assessment/Plan discussion: Low BMI Low, Plan discussed: lifestyle, increase calorie intake and dietary Tobacco/Smoking Status: Tobacco use Status Tobacco use date assessed 06/30/25 06/30/25 13:26 Patient Tobacco Use Status Former Tobacco user (20 06/30/25 13:26 years ) e-Cigarette/Vaping Use Never Used 06/30/25 13:26 PHQ-9: PHQ-9 Score PHQ-9: Total score 0 06/30/25 13:26 Depression Screening Interpretation: Negative Thrive Assessment: Date of Thrive Assessment Date Thrive assessed 03/05/25 06/30/25 13:26 Currently or been in a relationship where the following occur: No concerns reported Const General: cooperative, comfortable, no acute distress, alert and awake; No confusion Orientation/consciousness: oriented to person, oriented to place, patient oriented x3 and No confusion HENMT Head: Yes normocephalic Ears: external ears normal and TM's normal bilaterally Face and sinus: No sinus tenderness Mouth: Normal oral and palatal mucosa present and tongue normal Teeth and gingiva: dentition normal and gingiva normal Throat: Yes posterior oropharynx normal, Yes tonsils normal and Yes uvula midline Eyes Conjunctivae: conjunctivae normal Sclerae: sclerae normal Pupils: Equal, round and reactive pupils present EOM: EOMs intact bilaterally Direct Ophthalmoscopy: No no photophobia Neck Neck: Yes no lymphadenopathy, No tender and Yes no JVD Thyroid: Thyroid normal Carotids: no bruits Chest Chest palpation & inspection: no tenderness Resp Effort & Inspection: normal respiratory effort, no audible wheezes, not labored and no stridor Auscultation: no crackles, no rales, no rhonchi and no wheezes Cardio Jugular venous distension: no JVD Rate: regular rate, not bradycardic and not tachycardic Rhythm: regular rhythm Bruits: no carotid bruits Peripheral pulses: Peripheral pulses 2+ throughout GI Inspection: Yes normal to inspection, No abdominal wall ecchymosis and No visible herniation Palpation (GI): Soft to palpation, nontender, no guarding, not rigid and No hepatosplenomegaly present Auscultation: normoactive bowel sounds General: Yes no CVA tenderness Back/Spine/Pelvis Back: no CVA tenderness and No back tenderness Cervical Spine: cervical ROM normal Thoracic/Lumbar Spine: thoracic and lumbar spine normal to inspection, straight leg raise negative bilaterally, No thoraco-lumbar ROM limited and No lumbar spinal tenderness Skin Lesions: no lesions Rashes: no rashes Wounds: no wounds Neuro General: oriented to person, oriented to place, patient oriented x3, CN's II-XI intact bilaterally and No confusion Cranial nerves: Yes Equal, round and reactive pupils present and Yes Normal accommodation reflex present Cognition (Neuro): normal cognition Speech: No Abnormal speech present Gait exam (Neuro): Normal gait present Motor exam (neuro): 5/5 motor strength present throughout Extrem Right upper extremity: full ROM; no cyanosis Left upper extremity: full ROM; no cyanosis Right lower extremity: no edema Left lower extremity: no edema Psych Appearance: grossly normal Mental Status: mental status grossly normal Affect: normal affect Attitude: cooperative Thought process: Normal thought process present Coding Level of Care Code Est Pt Prev Care >65y(03022) Diagnoses Annual physical exam Z00.00 Age-related osteoporosis without current pathological fracture M81.0 Osteoporosis type: age-related Presence of current pathological fracture: without current pathological fracture B12 deficiency E53.8 Additional Codes PHQ-9 - 29518 - PHQ-9 Billing: Yes ([id number]) SHANIKA-7 Assessment Billing - SAHNIKA-7 Assessment Tool: SHANIKA-7 Assessment 11063 ([id number]) Assessment & Plan Assessment & Plan (1) Annual physical exam: Code(s): Z00.00 - Encounter for general adult medical examination without abnormal findings Category: Medical Plan: As per [facility] (2) Osteoporosis: Code(s): M81.0 - Age-related osteoporosis without current pathological fracture Category: Medical Qualifiers: Osteoporosis type: age-related Presence of current pathological fracture: without current pathological fracture Qualified Code(s): M81.0 - Age- related osteoporosis without current pathological fracture Plan: Patient continues on Fosamax weekly. Most recent bone density showing low T- score at -2.8. Will continue with vitamin-D and calcium supplementation (3) B12 deficiency: Code(s): E53.8 - Deficiency of other specified B group vitamins Category: Medical Plan: Most recent labs showing elevated B12 levels. Patient has stopped using B12 supplementation. Orders: Orders Comprehensive [place]mlin. Panel Fast Today Z13.1 - Encounter for screening for diabetes mellitus Vitamin B12 and Folate Today E53.8 - Deficiency of other specified B group vitamins Complete Blood Count no Diff Today Z13.1 - Encounter for screening for diabetes mellitus Medications: Refilled alendronate 70 mg PO QWEEK 12 tabs 1RF 12 weeks M81.0 - Age-related osteoporosis without current pathological fracture
[2025-06-30 13:30] VITALS: BP 120/62; PULSE 76; TEMP 36.1; O2SAT 97; BMI 17.4
--- OUTSIDE RECORDS SUMMARY | 2025-06-30 16:09 | XMS_ITS | Patient Health Record ---
Author Organization [facility] Address [address] [place] [address] Care Team Providers Care Fbi Special Agent Name Role Phone NAKUL BARAJAS Primary Care Provider Rl Charles Unavailable [phone] Allergies Allergen (clinical drug ingredient) Drug/Non Drug Allergy documented on EMR Reaction Allergy Type Onset Date Status some antibiotics (uncoded) swollen eyes Allergy Active Reason For Referral No Information Medications Medication SIG (Take, Route, Fr equency, Duration) Notes Start Date End Date Status Prolia 60 mg/mL as directed subcutan eously every 6 months; Duration: 12 month(s) Active Benadryl ' 25 mg makes her tired Active elidel cream' 1% apply to skin rash as needed Active zyrtec (ceterizine)' 10 mg 1 tab once a day Active Problems Problem Type SNOMED Code ICD Code Onset Dates Problem Status W/U Status Risk Notes Problem insect bite, toxic (T63.481A) Active confirmed Problem Personal history of primary malignant neoplasm of breast ([id number]) personal hx. breast Ca (Z85.3) Active confirmed Problem family history - atopy (Z84.89) Active confirmed Problem Allergic rhinitis (62086341) allergic rhinitis - unspecified (J30.9) Active confirmed Plan Of Treatment No Information Insurance Providers Payer Name Payer Address Payer Phone Subscriber Number Group Number Insured Name Patient Relationship to Insured Coverage Start Date Coverage End Date [employer] HMO G[employer]US [address] [address] [place] [phone] [id number] LAURO TUCKER Self - patient is the insured 9 Medical (General) History Medical History History ICD Code rhinitis - unspecified cancer-breast 2018 chronic ear infections osteoporosis Surgical History Surgery Date(Month/Year) lumpectomy 2018 Hospitalization History Reason Date(Month/Year) surgery
--- OUTSIDE RECORDS SUMMARY | 2025-06-30 16:09 | XMS_ITS | Patient Health Record ---
Author Organization [facility] Address [address], [place] [id number] Care Team Providers Care Mold Swabber Name Role Phone LILLIAN BONILLA Unavailable [phone] Reason For Referral No Information Plan Of Treatment No Information
== END 2025-06-30 14:03 | disposition home or self-care (01) ==
PROVIDERS: PCP Physician Assistant; Visit Provider Physician Assistant
DX: Z00.00 Encounter for general adult medical examination without abnormal findings (principal); M81.0 Age-related osteoporosis without current pathological fracture; E53.8 Deficiency of other specified B group vitamins

== ENCOUNTER → 2025-06-30 13:22 | Outpatient (BNVA) | payer OTHER, SELFPAY | PROVIDERS: PCP Physician Assistant; Visit Provider Physician Assistant | DX: Z00.00 Encounter for general adult medical examination without abnormal findings (principal); M81.0 Age-related osteoporosis without current pathological fracture; E53.8 Deficiency of other specified B group vitamins | CPT/HCPCS: 96127 ==